=== PATIENT | male | born 1960 | race Caucasian/White ===

== ENCOUNTER → 2017-12-17 08:45 | Outpatient (CLI) | payer BC, SELFPAY ==
--- NOTE | 2017-12-17 08:47 | DI.RAD.S_ITS ---
PROCEDURE: XR LUMBAR SPINE 2-3V INDICATIONS: Low back and R hip pain with radiculopathy TECHNIQUE: 2 views of the lumbar spine were acquired. COMPARISON: None. FINDINGS: Bones: No fracture or focal osseous destruction. Endplate spurring and sclerosis from L3-S1. There is lower lumbar facet arthropathy from L4-S1. Mild narrowing of the L4-L5 disc space. Remaining disc spaces are grossly preserved. Lower thoracic spine endplate spurring and sclerosis. Soft tissues: Overlying bowel gas pattern is normal. No suspicious soft tissue calcifications. IMPRESSION: Mild L4-L5 degenerative disease. Lower lumbar facet arthropathy from L4-S1. Dictated by: Sae Solomon M.D. on 12/17/2017 at 8:14 Approved by: Sae Solomon M.D. on 12/17/2017 at 8:17
== END ==
PROVIDERS: PCP Physician Assistant; Visit Provider Physician Assistant
DX: M47.27 Other spondylosis with radiculopathy, lumbosacral region (principal); M25.551 Pain in right hip
CPT/HCPCS: 72100

== ENCOUNTER → 2018-08-08 09:13 | Outpatient (CLI) | payer BC, SELFPAY ==
[2018-08-08 09:50] LABS: Alanine Aminotransferase 42 IU/L (21-72); Albumin 4.3 g/dL (3.5-5.0); Albumin Globulin Ratio 1.5 (1.0-2.8); Alkaline Phosphatase 71 U/L (38-126); Aspartate Aminotransferase 35 IU/L (17-59); BUN Creatinine Ratio 15.6 (6-22); Bilirubin Total 0.6 mg/dL (0.2-1.3); Blood Urea Nitrogen 14 mg/dL (9-20); Calcium 9.3 mg/dL (8.4-10.2); Carbon Dioxide 30 mmol/L (22-32); Chloride 99 mmol/L (98-107); Cholesterol 213 mg/dL (140-199); Estimated Glomerular Filt Rate > 60.0 mL/min (>60); Globulin 2.8 g/dL (1.7-4.1); Glucose 102 mg/dL (70-100); HDL Cholesterol 42 mg/dL (40-60); HEMOLYSIS < 15 (0-50); LDL Cholesterol Calculated 115 mg/dL (<100); Potassium 4.7 mmol/L (3.4-5.1); Sodium 137 mmol/L (137-145); Total Protein 7.1 g/dL (6.3-8.2); Triglycerides 282 mg/dL (35-150)
[2018-08-08 12:26] LABS: Hep C Virus Ab w/Reflex Quant NEGATIVE s/c (NEGATIVE)
== END ==
PROVIDERS: PCP Physician Assistant; Visit Provider Physician Assistant
DX: E78.1 Pure hyperglyceridemia (principal); Z11.59 Encounter for screening for other viral diseases
CPT/HCPCS: 36415; 80053; 80061; 86803

== ENCOUNTER → 2018-09-06 12:25 | Outpatient (CLI) | payer BC, SELFPAY ==
[2018-09-09 13:47] LABS: Fecal Immunochemical Test NOT DETECTED (NOT DETECTED)
== END ==
PROVIDERS: PCP Physician Assistant; Visit Provider Physician Assistant
DX: Z12.11 Encounter for screening for malignant neoplasm of colon (principal)
CPT/HCPCS: 82274

== ENCOUNTER → 2018-10-01 08:28 | Outpatient (CLI) | payer BC, SELFPAY ==
[2018-10-01 09:10] LABS: Cholesterol 197 mg/dL (140-199); HDL Cholesterol 39 mg/dL (40-60); LDL Cholesterol Calculated 132 mg/dL (<100); Triglycerides 132 mg/dL (35-150)
== END ==
PROVIDERS: PCP Physician Assistant; Visit Provider Physician Assistant
DX: E78.1 Pure hyperglyceridemia (principal)
CPT/HCPCS: 36415; 80061

== ENCOUNTER → 2019-08-23 08:11 | Outpatient (CLI) | payer BC, SELFPAY ==
[2019-08-23 09:32] LABS: Add Manual Diff / Slide Review NO; Basophils Absolute Auto 100 /uL (0-100); Eosinophils Absolute Auto 400 /uL (0-450); Eosinophils Percent Auto 4.9 % (2-4); Hematocrit 46.5 % (41-53); Hemoglobin 15.9 g/dL (13.5-17.5); Lymphocytes Absolute Auto 2900 /uL (1100-4500); Lymphocytes Percent Auto 36.1 % (25-40); Mean Corpuscular HGB Conc 34.2 % (30-36); Mean Corpuscular Hemoglobin 30.1 PG (26-34); Mean Corpuscular Volume 88.2 fL (80-100); Monocytes Absolute Auto 500 /uL (0-900); Monocytes Percent Auto 6.6 % (3-14); Neutrophils Absolute Auto 4100 /uL (1500-7000); Neutrophils Percent Auto 51.4 % (50-75); Platelet Count 290 X10^3/uL (150-400); Red Blood Cell Count 5.27 X10^6/uL (4.5-5.9); Red Cell Distribution Width 13.5 % (11.6-14.8)
[2019-08-23 10:01] LABS: Alanine Aminotransferase 24 IU/L (<50); Albumin 2.9 g/dL (3.5-5.0); Albumin Globulin Ratio 1.2 (1.0-2.8); Alkaline Phosphatase 69 U/L (38-126); Aspartate Aminotransferase 27 IU/L (17-59); Bilirubin Total 0.4 mg/dL (0.2-1.3); Blood Urea Nitrogen 20 mg/dL (9-20); Calcium 9.2 mg/dL (8.4-10.2); Carbon Dioxide 34 mmol/L (22-32); Chloride 103 mmol/L (98-107); Cholesterol 259 mg/dL (140-199); Estimated Glomerular Filt Rate > 60.0 mL/min (>60); Globulin 2.5 g/dL (1.7-4.1); Glucose 92 mg/dL (70-100); HDL Cholesterol 37 mg/dL (40-60); HEMOLYSIS < 15 (0-50); LDL Cholesterol Calculated 172 mg/dL (<100); Potassium 5.3 mmol/L (3.4-5.1); Sodium 139 mmol/L (137-145); Total Protein 5.4 g/dL (6.3-8.2); Triglycerides 249 mg/dL (35-150)
[2019-08-23 10:26] LABS: Thyroid Stimulating Hormone 1.62 uIU/mL (0.47-4.68)
[2019-08-23 10:38] LABS: Appearance Urine UA CLEAR; Bilirubin Urine UA NEGATIVE (NEGATIVE); Color Urine UA YELLOW; Glucose Urine UA NEGATIVE (Negative); Ketones Urine UA NEGATIVE (NEGATIVE); Leukocyte Esterase Urine UA NEGATIVE (NEGATIVE); Nitrite Urine UA NEGATIVE (Negative); Occult Blood Urine UA 1+ (Negative); Protein Urine UA 3+ (Negative); Specific Gravity Urine UA 1.025 (1.000-1.035); Urobilinogen Urine UA 0.2 E.U./dL (0.2)
[2019-08-23 10:42] LABS: Bacteria Urine None Seen; WBC Urine None Seen (0-5/HPF)
[2019-08-23 10:55] LABS: Amorphous Sediment Urine 2+; Culture Indicated Urine Cult Not Indicated; Mucus Urine 1+ (Negative); RBC Urine 1-5/HPF (0-5/HPF)
== END ==
PROVIDERS: PCP Physician Assistant
DX: E78.1 Pure hyperglyceridemia (principal); E78.5 Hyperlipidemia, unspecified
CPT/HCPCS: 36415; 80053; 80061; 81003; 81015; 84443; 85025

== ENCOUNTER → 2019-09-29 10:11 | Outpatient (CLI) | payer BC, SELFPAY ==
[2019-09-29 10:40] LABS: Appearance Urine UA CLEAR; Bilirubin Urine UA NEGATIVE (NEGATIVE); Color Urine UA YELLOW; Glucose Urine UA NEGATIVE (Negative); Ketones Urine UA NEGATIVE (NEGATIVE); Leukocyte Esterase Urine UA NEGATIVE (NEGATIVE); Nitrite Urine UA NEGATIVE (Negative); Occult Blood Urine UA 1+ (Negative); Protein Urine UA 3+ (Negative); Urobilinogen Urine UA 0.2 E.U./dL (0.2); pH Urine UA 5.5 (4.5-8.0)
[2019-09-29 10:49] LABS: Alanine Aminotransferase 27 IU/L (<50); Albumin 3.3 g/dL (3.5-5.0); Albumin Globulin Ratio 1.1 (1.0-2.8); Alkaline Phosphatase 66 U/L (38-126); Aspartate Aminotransferase 35 IU/L (17-59); BUN Creatinine Ratio 11.2 (6-22); Bilirubin Total 0.5 mg/dL (0.2-1.3); Blood Urea Nitrogen 11 mg/dL (9-20); Calcium 9.1 mg/dL (8.4-10.2); Carbon Dioxide 33 mmol/L (22-32); Chloride 103 mmol/L (98-107); Estimated Glomerular Filt Rate > 60.0 mL/min (>60); Globulin 2.9 g/dL (1.7-4.1); Glucose 101 mg/dL (70-100); HEMOLYSIS 42 (0-50); Potassium 4.8 mmol/L (3.4-5.1); Sodium 137 mmol/L (137-145); Total Protein 6.2 g/dL (6.3-8.2)
[2019-09-29 11:00] LABS: Bacteria Urine Few (2-10); Culture Indicated Urine Cult Not Indicated; Hyaline Casts Urine 0-1/LPF; Mucus Urine 1+ (Negative); RBC Urine 1-5/HPF (0-5/HPF); WBC Urine 0-1/HPF (0-5/HPF)
[2019-09-29 11:18] LABS: Prostate Specific Antigen 1.28 ng/mL (0.10-4.00)
== END ==
PROVIDERS: PCP Physician Assistant; Referring Provider Family Medicine; Visit Provider Family Medicine
DX: E78.1 Pure hyperglyceridemia (principal); R31.29 Other microscopic hematuria
CPT/HCPCS: 36415; 80053; 81001; 84153

== ENCOUNTER → 2019-11-11 08:27 | Outpatient (CLI) | payer BC, SELFPAY ==
[2019-11-11 11:03] LABS: Appearance Urine UA CLEAR; Bilirubin Urine UA NEGATIVE (NEGATIVE); Color Urine UA YELLOW; Glucose Urine UA NEGATIVE (Negative); Ketones Urine UA NEGATIVE (NEGATIVE); Leukocyte Esterase Urine UA NEGATIVE (NEGATIVE); Nitrite Urine UA NEGATIVE (Negative); Occult Blood Urine UA 2+ (Negative); Protein Urine UA 3+ (Negative); Specific Gravity Urine UA 1.015 (1.000-1.035); Urobilinogen Urine UA 0.2 E.U./dL (0.2); pH Urine UA 6.5 (4.5-8.0)
[2019-11-11 11:28] LABS: Bacteria Urine Few (2-10); Culture Indicated Urine Cult Not Indicated; RBC Urine 5-10/HPF (0-5/HPF); WBC Urine 1-5/HPF (0-5/HPF)
== END ==
PROVIDERS: PCP Physician Assistant; Referring Provider Family Medicine; Visit Provider Family Medicine
DX: N41.0 Acute prostatitis (principal)
CPT/HCPCS: 81001

== ENCOUNTER → 2019-12-01 10:00 | Outpatient (CLI) | payer BC, SELFPAY ==
--- NOTE | 2019-12-01 10:01 | DI.RAD.S_ITS ---
PROCEDURE: XR LUMBAR SPINE 2-3V INDICATIONS: worsening radiculopathy TECHNIQUE: 3 views of the lumbar spine were acquired. COMPARISON: [facility], CR, XR LUMBAR SPINE 2-3V, 12/17/2017, 8:27. FINDINGS: Bones: 5 [id number] vertebrae are present. There is normal bony alignment. No vertebral body compression fractures. No suspicious bony lesions. Degenerative changes including intervertebral disc space narrowing, endplate sclerosis, osteophytosis, and facet sclerosis are present within the lower lumbar spine. These findings have increased in extent at L4-5 when compared with the prior plain film dated 12/17/17. Soft tissues: Overlying bowel gas pattern is normal. No suspicious soft tissue calcifications. IMPRESSION: Degenerative changes increased in severity when compared with the study from 2018. No acute compression deformities. Dictated by: Ava Martino M.D. on 12/01/2019 at 11:58 Approved by: Ava Martino M.D. on 12/01/2019 at 11:59
== END ==
PROVIDERS: PCP Nurse Practitioner Family; Referring Provider Nurse Practitioner Family; Visit Provider Nurse Practitioner Family
DX: M47.26 Other spondylosis with radiculopathy, lumbar region (principal)
CPT/HCPCS: 72100

== ENCOUNTER → 2020-02-12 09:34 | Outpatient (CLI) | payer BC, SELFPAY ==
--- NOTE | 2020-02-12 | DI.MRI.S_ITS ---
PROCEDURE: MR LUMBAR SPINE WO CON INDICATIONS: LUMBAR PAIN TECHNIQUE: Noncontrast sagittal T1 spin echo and T2 fast echo, sagittal STIR, axial T1 and T2 fast spin echo through the lumbar spine. In cases with scoliosis, additional coronal T2 fast spin echo may be performed. COMPARISON: [facility], CR, XR LUMBAR SPINE 2-3V, 12/01/2019, 10:17. [facility], CR, XR LUMBAR SPINE 2-3V, 12/17/2017, 8:27. FINDINGS: Image quality: Excellent. Alignment and Curvature: There is normal bony alignment. Bone Marrow: Reactive endplate changes noted adjacent to the L4-L5 and L5-S1 discs., benign intraosseous hemangioma is noted in the L1 and L2 vertebral bodies. No acute vertebral body compression fractures. Spinal Cord: Conus medullaris terminates at the L1 level. Visualized cord demonstrates normal signal and size. Paraspinous Soft Tissues: No paravertebral masses. L1-L2: Normal appearance. L2-L3: Normal appearance. L3-L4: Slight loss of disc signal. Mild, diffuse disc bulge. Mild narrowing the central canal. Mild bilateral neural foraminal narrowing. Fissure noted in the left foraminal annulus. No neural compression. L4-L5: Loss of disc signal and height. Mild, diffuse disc bulge. Mild bilateral facet hypertrophy. Mild ligamentum flavum hypertrophy. Severe narrowing of the central canal with slight compression of the nerve roots of the cauda equina. Moderate to severe right and moderate left neural foraminal narrowing. L5-S1: Loss of disc signal. Mild, diffuse disc bulge. Small central disc protrusion. Mild bilateral facet hypertrophy. Mild narrowing of the central canal. Mild bilateral neural foraminal narrowing. No neural compression. Fissure noted in the posterior annulus. IMPRESSION: 1. Multilevel degenerative disease. 2. Multilevel facet arthropathy. 3. Severe L4-L5 central canal narrowing with slight compression of the nerve roots of the cauda equina. 3. Moderate to severe right moderate left L4-L5 neural foraminal narrowing. Mild bilateral L3-L4 and L5-S1 neural foraminal narrowing. 4. L3-L4 and L4-L5 disc annulus fissures. Dictated by: Barbi Bravo MD, PhD on 02/12/2020 at 14:41 Approved by: Barbi Bravo MD, PhD on 02/12/2020 at 14:44
== END ==
PROVIDERS: PCP Nurse Practitioner Family; Referring Provider Orthopaedic Surgery Orthopaedic Surgery of the Spine; Visit Provider Orthopaedic Surgery Orthopaedic Surgery of the Spine
DX: M51.16 Intervertebral disc disorders with radiculopathy, lumbar region (principal); M51.17 Intervertebral disc disorders with radiculopathy, lumbosacral region; M47.26 Other spondylosis with radiculopathy, lumbar region; M47.27 Other spondylosis with radiculopathy, lumbosacral region; M48.061 Spinal stenosis, lumbar region without neurogenic claudication; M48.07 Spinal stenosis, lumbosacral region
CPT/HCPCS: 72148

== ENCOUNTER 2020-04-18 17:53 | Observation (INO) | payer BC, SELFPAY ==
[2020-04-18] VITALS (11 sets, daily range): BP systolic 155–202; BP diastolic 82–96; PULSE 72–89; RESP 14–19; TEMP 36.6–37.2; O2SAT 91–98; BMI 33.5
--- NOTE | 2020-04-18 18:02 | DI.US.S_ITS ---
PROCEDURE: US ABDOMEN LIMITED INDICATIONS: RIGHT UPPER QUADRANT PAIN AND VOMITING TECHNIQUE: Real-time focused scanning was performed of the abdomen, with image documentation. COMPARISON: [facility], CT, CT IVP, 12/18/2019, 9:23. FINDINGS: Mild diffuse increased echogenicity of the liver. This commonly represents hepatic steatosis. However, on the recent prior CT, there was no fatty change in the liver. Gallbladder is unremarkable. Thin gallbladder wall. No gallstones. No fluid around the gallbladder. No sonographic Ochoa sign. Pancreas not well visualized secondary to overlying bowel gas. Limited imaging of the right kidney demonstrates no hydronephrosis. Extrahepatic biliary duct not visualized secondary to overlying bowel gas. IMPRESSION: 1. No evidence of gallstone disease. 2. Question hepatic steatosis. Comment: Patient is noted to be scheduled to undergo a CT of the abdomen and pelvis to be performed following this examination. Dictated by: Lee Levy M.D. on 04/18/2020 at 18:49 Approved by: Lee Levy M.D. on 04/18/2020 at 18:51
--- NOTE | 2020-04-18 18:05 | ED_ITS ---
HPI - Abdominal Pain <BRENDA Ma-BC - Last Filed: 04/18/20 20:39> General Chief Complaint: Abdominal Pain Stated Complaint: Abdominal pain Time Seen by Provider: 04/18/20 18:02 Source: patient Mode of arrival: EMS Limitations: no limitations History of Present Illness HPI narrative: The patient is a 60-year-old male current smoker with history of obstructive sleep apnea who presents with a chief complaint of nausea vomiting and abdominal pain since yesterday. Denies any abdominal surgery. He wonders if it is related to the for his [facility] saw such that he cooked yesterday b efore he got sick. He states his pain is right up under his ribcage is on both sides. He denies any fevers, complains of muscle aches and chills when vomiting. Denies any chest pain or shortness of breath. States he has never had abdominal pain like this before. Denies any problems urinating. Last bowel movement was 2 days ago. Related Data Home Medications Medication Instructions Recorded Confirmed cholecalciferol (vitamin D3) 125 5,000 unit PO DAILY 12/17/17 04/18/20 mcg (5,000 unit) capsule multivitamin,[id number] 1 tab PO DAILY 12/17/17 04/18/20 OMEGA 3 FISH OIL See Rx Instructions .ROUTE .COMPLEX 08/14/18 04/18/20 albuterol sulfate 90 mcg/actuation 2 puff INHALATION Q4-6H PRN 11/19/19 04/18/20 aerosol inhaler inhalation Previous Rx's Medication Instructions Recorded CPAP Supplies #1 ea 11/06/17 varicella-zoster [id number] (PF) 50 50 mcg IM ONCE #1 each 08/14/18 mcg/0.5 mL IM susp, kit atorvastatin 10 mg tablet 10 mg PO BEDTIME #90 tab 09/29/19 naproxen 500 mg tablet 500 mg PO BIDCC #90 tab 10/24/19 modafinil 200 mg tablet 200 mg PO QDAY #90 tab 11/19/19 fluticasone 250 mcg-salmeterol 50 1 inhalation INHALATION BID #60 02/20/20 mcg/dose blistr powdr for each inhalation Allergies Allergy/AdvReac Type Severity Reaction Status Date / Time No Known Drug Allergies Allergy Verified 12/23/19 09:20 Review of Systems <THAO Ma - Last Filed: 04/18/20 20:39> Review of Systems Narrative: GENERAL: See HPI HEENT: Denies sinus pain, ear pain, sore throat, difficulty swallowing, dizziness. RESPIRATORY: Denies dyspnea, cough, wheezing, hemoptysis, sputum. CARDIOVASCULAR: Denies chest pain, palpitations, orthopnea, edema, GASTROINTESTINAL: See HPI : Denies dysuria, frequency, incontinence, hematuria, urinary retention. MUSCULOSKELETAL: denies weakness, joint pain, or bony pain SKIN: Denies rash, skin lesions, or other NEUROLOGIC: Denies weakness, headache, numbness, change in speech, confusion, seizures, incoordination. PSYCHIATRIC: No concerning psychosocial issues. 12 point review of systems is negative except for those stated above Patient History <THAO Ma - Last Filed: 04/18/20 20:39> Medical History Asthma (Chronic Unknown) Basal cell carcinoma (BCC) (Acute) COPD (chronic obstructive pulmonary disease) (Acute) Gout (Chronic Unknown) Hearing loss (Chronic Unknown) Hyperlipidemia (Acute) Microscopic hematuria (Acute 08/2019) Narcolepsy (Chronic Unknown) Periodic limb movement disorder (Chronic Unknown) REM behavioral disorder (Chronic Unknown) Skin lesion (Acute) Sleep apnea (Chronic Unknown) Visit for suture removal (Acute) Surgical History History of basal cell carcinoma excision (Acute) Family History Mother Brain tumor Father Heart disease Dementia Social History household members: spouse Smoking Status: Current every day smoker Tobacco: How many years used: 40 quit status: considering quitting second hand exposure: No alcohol intake: current substance use type: does not use Smoking Status: Current every day smoker Exam <THAO Ma - Last Filed: 04/18/20 20:39> Narrative Exam Narrative: GENERAL: This is a well-nourished, well-developed patient, appears uncomfortable HEAD: Atraumatic. Normocephalic. No temporal or scalp tenderness. EYES: Pupils equal round and reactive. Extraocular motions intact. No scleral icterus. No injection or drainage. ENT: Nose without bleeding, purulent drainage or septal hematoma. Wearing a mask. Airway patent. NECK: Trachea midline. No JVD or lymphadenopathy. Supple, nontender, no meningeal signs. CARDIOVASCULAR: Regular rate and rhythm RESPIRATORY: Clear to auscultation. Breath sounds equal bilaterally. No wheezes, rales, or rhonchi. No cough. No increased respiratory effort no accessory muscle use. GASTROINTESTINAL: Abdomen soft, tenderness with guarding to right upper quadrant, positive Ochoa sign, otherwise diffusely tender to palpation. No palpable masses. Active bowel sounds all 4 quadrants EXTREMITIES: No clubbing, cyanosis, or edema. No joint tenderness, effusion, or edema noted. BACK: Nontender without deformity or crepitance. No flank tenderness. NEURO: AOx3. Clear speech. No gross cranial nerve deficit. SKIN: No rash or erythema on visible skin Initial Vital Signs Initial Vital Signs: Vital Signs Pulse Rate 80 04/18/20 17:55 Respiratory Rate 18 04/18/20 17:55 Blood Pressure 202/96 H 04/18/20 17:55 Pulse Oximetry 95 04/18/20 17:55 <Thanh Howard DO - Last Filed: 04/19/20 00:33> Initial Vital Signs Initial Vital Signs: Vital Signs Pulse Rate 80 04/18/20 17:55 Respiratory Rate 18 04/18/20 17:55 Blood Pressure 202/96 H 04/18/20 17:55 Pulse Oximetry 95 04/18/20 17:55 Scores <THAO Ma - Last Filed: 04/18/20 20:39> GCS Leila coma scale eye opening: Spontaneous Corea coma scale verbal response: Orientated Corea coma scale motor response: Obey commands Leila coma scale total score: 15 Course <THAO Ma - Last Filed: 04/18/20 20:39> Orders Ordered: ED Orders 04/18/20 18:00 Amylase Stat Complete Blood Count AUTO DIFF Stat Comprehensive Metabolic Panel Stat Lactate (Lactic Acid) Stat Lipase Stat Partial Thromboplastin Time Stat Prothrombin Time INR Stat Troponin & CK Cardiac Panel Stat 04/18/20 18:02 US abdomen limited Stat EKG-12 Lead Stat 04/18/20 18:04 XR acute abdomen series Stat 04/18/20 18:17 COVID19 -ED/INPAT/OR/L&D Stat 04/18/20 18:38 CT abdomen pelvis w con Stat 04/18/20 20:04 Ethanol (ETOH) Stat 04/18/20 20:49 Urine Culture Stat Urine Drug Screen, Rapid Stat Acetaminophen (Tylenol) 650 mg PO Q6HR PRN PRN Reason: Fever/Mild Pain (1-3) Acetaminophen (Tylenol) 650 mg ND Q6HR PRN PRN Reason: Fever/Mild Pain (1-3) Albuterol (Ventolin Hfa (Vent/Covid R/O)) 2 puff INH Q4H PRN PRN Reason: Dyspnea Atorvastatin Calcium (Lipitor) 10 mg PO BEDTIME SERG Enoxaparin Sodium (Lovenox) 40 mg SUBCUT DAILY SERG Folic Acid (Folic Acid) 1 mg PO DAILY SERG Hydromorphone HCl (Dilaudid) 1 mg IV Q3H PRN PRN Reason: Pain, Severe (7-10) Last Admin: 04/18/20 23:50 Dose: 1 mg Documented by: Admin: 04/18/20 21:35 Dose: 1 mg Documented by: NICKI Magnesium Sulfate 2 gm/ Folic Acid 1 mg/ Thiamine HCl 100 mg / Multivitamins 10 ml/ Sodium Chloride 1,015.2 mls @ 125 mls/hr IV NOW ONE Stop: 04/19/20 04:56 Last Admin: 04/18/20 21:35 Dose: 125 mls/hr Documented by: NICKI Lorazepam (Ativan) 2 mg IV CIWAPRN PRN; Protocol PRN Reason: Alcohol Withdrawal Metoclopramide HCl (Reglan) 10 mg IV Q6HR PRN PRN Reason: Nausea And Vomiting Multivitamins (Tab-A-Will) 1 tab PO DAILY SERG Naloxone HCl (Narcan) 0.2 mg IV Q2MIN PRN PRN Reason: Opiate Reversal Nicotine (Nicoderm) 14 mg TOP DAILY SERG Ondansetron HCl (Zofran) 4 mg IV Q6HR PRN PRN Reason: Nausea And Vomiting Fluticasone/Salmeterol (Advair 250/50 Diskus) 1 puff INH BID SERG Last Admin: 04/18/20 22:22 Dose: 1 puff Documented by: NICKI Sennosides (Senna) 17.2 mg PO BEDTIME [facility] Last Admin: 04/18/20 21:41 Dose: 17.2 mg Documented by: NICKI Thiamine HCl (Vitamin B-1) 100 mg PO DAILY [facility] Stop: 04/22/20 09:01 Discontinued Medications Enoxaparin Sodium (Lovenox) 40 mg SUBCUT DAILY [facility] Hydromorphone HCl (Dilaudid) 1 mg IV NOW ONE Stop: 04/18/20 18:59 Last Admin: 04/18/20 19:09 Dose: 1 mg Documented by: LACHELLE Sodium Chloride (Normal Saline 0.9%) 1,000 mls @ 1,000 mls/hr IV BOLUS ONE Stop: 04/18/20 19:06 Last Infusion: 04/18/20 20:29 Dose: 0 mls/hr Documented by: Admin: 04/18/20 18:13 Dose: 1,000 mls/hr Documented by: LACHELLE Sodium Chloride (Normal Saline 0.9%) 1,000 mls @ 1,000 mls/hr IV BOLUS ONE Stop: 04/18/20 20:34 Last Admin: 04/18/20 19:48 Dose: 1,000 mls/hr Documented by: LACHELLE Ceftriaxone Sodium/Dextrose (Rocephin) 1 gm in 50 mls @ 100 mls/hr IV NOW ONE Stop: 04/18/20 22:15 Last Admin: 04/18/20 22:58 Dose: 100 mls/hr Documented by: NICKI Ketorolac Tromethamine (Toradol) 30 mg IV Q6HR PRN PRN Reason: Pain, Severe (7-10) Stop: 04/23/20 20:48 Labetalol HCl (Trandate) 5 mg IV NOW ONE Stop: 04/18/20 21:50 Last Admin: 04/18/20 22:42 Dose: Not Given Documented by: NICKI Morphine Sulfate (Morphine) 4 mg IV NOW ONE Stop: 04/18/20 18:03 Last Admin: 04/18/20 18:12 Dose: 4 mg Documented by: LACHELLE Morphine Sulfate (Morphine) 4 mg IV NOW ONE Stop: 04/18/20 18:39 Last Admin: 04/18/20 18:42 Dose: 4 mg Documented by: LACHELLE Pantoprazole Sodium (Protonix) 40 mg IV NOW ONE Stop: 04/18/20 19:02 Last Admin: 04/18/20 19:09 Dose: 40 mg Documented by: LACHELLE Vital Signs Vital signs: Vital Signs - 8 hr 04/18/20 17:55 04/18/20 17:58 04/18/20 18:02 Temperature 98.9 F Pulse Rate 80 75 Respiratory Rate 18 Blood Pressure 202/96 H Pulse Oximetry 95 98 04/18/20 18:21 04/18/20 18:30 Temperature Pulse Rate 78 72 Respiratory Rate Blood Pressure 179/95 H 174/82 H Pulse Oximetry 95 97 <Thanh Howard DO - Last Filed: 04/19/20 00:33> Orders Ordered: ED Orders 04/18/20 18:00 Amylase Stat Complete Blood Count AUTO DIFF Stat Comprehensive Metabolic Panel Stat Lactate (Lactic Acid) Stat Lipase Stat Partial Thromboplastin Time Stat Prothrombin Time INR Stat Troponin & CK Cardiac Panel Stat 04/18/20 18:02 US abdomen limited Stat EKG-12 Lead Stat 04/18/20 18:04 XR acute abdomen series Stat 04/18/20 18:17 COVID19 -ED/INPAT/OR/L&D Stat 04/18/20 18:38 CT abdomen pelvis w con Stat 04/18/20 20:04 Ethanol (ETOH) Stat 04/18/20 20:49 Urine Culture Stat Urine Drug Screen, Rapid Stat Acetaminophen (Tylenol) 650 mg PO Q6HR PRN PRN Reason: Fever/Mild Pain (1-3) Acetaminophen (Tylenol) 650 mg ND Q6HR PRN PRN Reason: Fever/Mild Pain (1-3) Albuterol (Ventolin Hfa (Vent/Covid R/O)) 2 puff INH Q4H PRN PRN Reason: Dyspnea Atorvastatin Calcium (Lipitor) 10 mg PO BEDTIME SERG Enoxaparin Sodium (Lovenox) 40 mg SUBCUT DAILY SERG Folic Acid (Folic Acid) 1 mg PO DAILY SERG Hydromorphone HCl (Dilaudid) 1 mg IV Q3H PRN PRN Reason: Pain, Severe (7-10) Last Admin: 04/18/20 23:50 Dose: 1 mg Documented by: Admin: 04/18/20 21:35 Dose: 1 mg Documented by: NICKI Magnesium Sulfate 2 gm/ Folic Acid 1 mg/ Thiamine HCl 100 mg / Multivitamins 10 ml/ Sodium Chloride 1,015.2 mls @ 125 mls/hr IV NOW ONE Stop: 04/19/20 04:56 Last Admin: 04/18/20 21:35 Dose: 125 mls/hr Documented by: NICKI Lorazepam (Ativan) 2 mg IV CIWAPRN PRN; Protocol PRN Reason: Alcohol Withdrawal Metoclopramide HCl (Reglan) 10 mg IV Q6HR PRN PRN Reason: Nausea And Vomiting Multivitamins (Tab-A-Will) 1 tab PO DAILY [facility] Naloxone HCl (Narcan) 0.2 mg IV Q2MIN PRN PRN Reason: Opiate Reversal Nicotine (Nicoderm) 14 mg TOP DAILY [facility] Ondansetron HCl (Zofran) 4 mg IV Q6HR PRN PRN Reason: Nausea And Vomiting Fluticasone/Salmeterol (Advair 250/50 Diskus) 1 puff INH BID [facility] Last Admin: 04/18/20 22:22 Dose: 1 puff Documented by: NICKI Sennosides (Senna) 17.2 mg PO BEDTIME [facility] Last Admin: 04/18/20 21:41 Dose: 17.2 mg Documented by: NICKI Thiamine HCl (Vitamin B-1) 100 mg PO DAILY SERG Stop: 04/22/20 09:01 Discontinued Medications Enoxaparin Sodium (Lovenox) 40 mg SUBCUT DAILY [facility] Hydromorphone HCl (Dilaudid) 1 mg IV NOW ONE Stop: 04/18/20 18:59 Last Admin: 04/18/20 19:09 Dose: 1 mg Documented by: LACHELLE Sodium Chloride (Normal Saline 0.9%) 1,000 mls @ 1,000 mls/hr IV BOLUS ONE Stop: 04/18/20 19:06 Last Infusion: 04/18/20 20:29 Dose: 0 mls/hr Documented by: Admin: 04/18/20 18:13 Dose: 1,000 mls/hr Documented by: LACHELLE Sodium Chloride (Normal Saline 0.9%) 1,000 mls @ 1,000 mls/hr IV BOLUS ONE Stop: 04/18/20 20:34 Last Admin: 04/18/20 19:48 Dose: 1,000 mls/hr Documented by: LACHELLE Ceftriaxone Sodium/Dextrose (Rocephin) 1 gm in 50 mls @ 100 mls/hr IV NOW ONE Stop: 04/18/20 22:15 Last Admin: 04/18/20 22:58 Dose: 100 mls/hr Documented by: NICKI Ketorolac Tromethamine (Toradol) 30 mg IV Q6HR PRN PRN Reason: Pain, Severe (7-10) Stop: 04/23/20 20:48 Labetalol HCl (Trandate) 5 mg IV NOW ONE Stop: 04/18/20 21:50 Last Admin: 04/18/20 22:42 Dose: Not Given Documented by: NICKI Morphine Sulfate (Morphine) 4 mg IV NOW ONE Stop: 04/18/20 18:03 Last Admin: 04/18/20 18:12 Dose: 4 mg Documented by: LACHELLE Morphine Sulfate (Morphine) 4 mg IV NOW ONE Stop: 04/18/20 18:39 Last Admin: 04/18/20 18:42 Dose: 4 mg Documented by: LACEHLLE Pantoprazole Sodium (Protonix) 40 mg IV NOW ONE Stop: 04/18/20 19:02 Last Admin: 04/18/20 19:09 Dose: 40 mg Documented by: LACHELLE Vital Signs Vital signs: Vital Signs - 8 hr 04/18/20 17:55 04/18/20 17:58 04/18/20 18:02 Temperature 98.9 F Pulse Rate 80 75 Respiratory Rate 18 Blood Pressure 202/96 H Pulse Oximetry 95 98 04/18/20 18:21 04/18/20 18:30 Temperature Pulse Rate 78 72 Respiratory Rate Blood Pressure 179/95 H 174/82 H Pulse Oximetry 95 97 MDM - Abdominal Pain <BRENDA Ma- - Last Filed: 04/18/20 20:39> Differential Diagnosis Differential diagnosis: Likely abdominal pain, constipation, diverticulitis, gastroenteritis, pancreatitis and small bowel obstruction Lab Data Result diagrams: 04/18/20 18:00 04/18/20 18:00 Labs: Lab Results 04/18/20 04/18/20 04/18/20 Range/Units 18:00 18:00 18:00 WBC 16.7 H (4.5-11.0) X10^3/uL RBC 5.21 (4.5-5.9) X10^6/uL Hgb 15.8 (13.5-17.5) g/dL Hct 46.0 (41-53) % MCV 88.2 (80-100) fL MCH 30.3 (26-34) PG MCHC 34.3 (30-36) % RDW 13.6 (11.6-14.8) % Plt Count 273 (150-400) X10^3/uL Neut % (Auto) 83.3 H (50-75) % Lymph % (Auto) 11.4 L (25-40) % [place] % (Auto) 4.9 (3-14) % Eos % (Auto) 0.0 L (2-4) % Baso % (Auto) 0.4 (0-2) % Neut # (Auto) 44513 H (8774-4238) /uL Lymph # (Auto) 1900 (1479-4106) /uL [place] # (Auto) 800 (0-900) /uL Eos # (Auto) 0 (0-450) /uL Baso # (Auto) 100 (0-100) /uL PT (10.1-12.7) SECONDS INR (0.9-1.3) APTT (26.4-36.2) SECONDS Sodium 137 (137-145) mmol/L Potassium 3.7 (3.4-5.1) mmol/L Chloride 104 (98-107) mmol/L Carbon Dioxide 28 (22-32) mmol/L BUN 12 (9-20) mg/dL Creatinine 0.77 (0.66-1.25) mg/dL Estimated GFR > 60.0 (>60) mL/min BUN/Creatinine Ratio 15.6 (6-22) Glucose 105 (80-110) mg/dL Lactate 0.9 (0.7-2.1) mmol/L Calcium 9.0 (8.4-10.2) mg/dL Total Bilirubin 0.8 (0.2-1.3) mg/dL Conjugated Bilirubin (0.0-0.3) md/dL Unconjugated Bilirubin (0.0-1.1) mg/dL AST 31 (17-59) IU/L ALT 29 (<50) IU/L Alkaline Phosphatase 67 (38-126) U/L Total Creatine Kinase (55-170) U/L CK-MB (CK-2) (<2.37) ng/mL CK-MB (CK-2) Rel Index (1.5-5.0) % Troponin I (0.01-0.034) ng/mL Total Protein 6.2 L (6.3-8.2) g/dL Albumin 3.7 (3.5-5.0) g/dL Globulin 2.5 (1.7-4.1) g/dL Albumin/Globulin Ratio 1.5 (1.0-2.8) Amylase 48 (30-110) U/L Lipase 80 (23-300) U/L Ethyl Alcohol ( - 10) mg/dL COVID-19 PCR (Negative) 04/18/20 04/18/20 04/18/20 Range/Units 18:00 18:00 18:17 WBC (4.5-11.0) X10^3/uL RBC (4.5-5.9) X10^6/uL Hgb (13.5-17.5) g/dL Hct (41-53) % MCV (80-100) fL MCH (26-34) PG MCHC (30-36) % RDW (11.6-14.8) % Plt Count (150-400) X10^3/uL Neut % (Auto) (50-75) % Lymph % (Auto) (25-40) % [place] % (Auto) (3-14) % Eos % (Auto) (2-4) % Baso % (Auto) (0-2) % Neut # (Auto) (3744-3895) /uL Lymph # (Auto) (3444-7138) /uL [place]ford # (Auto) (0-900) /uL Eos # (Auto) (0-450) /uL Baso # (Auto) (0-100) /uL PT 11.8 (10.1-12.7) SECONDS INR 1.0 (0.9-1.3) APTT 31 (26.4-36.2) SECONDS Sodium (137-145) mmol/L Potassium (3.4-5.1) mmol/L Chloride (98-107) mmol/L Carbon Dioxide (22-32) mmol/L BUN (9-20) mg/dL Creatinine (0.66-1.25) mg/dL Estimated GFR (>60) mL/min BUN/Creatinine Ratio (6-22) Glucose (80-110) mg/dL Lactate (0.7-2.1) mmol/L Calcium (8.4-10.2) mg/dL Total Bilirubin (0.2-1.3) mg/dL Conjugated Bilirubin (0.0-0.3) md/dL Unconjugated Bilirubin (0.0-1.1) mg/dL AST (17-59) IU/L ALT (<50) IU/L Alkaline Phosphatase (38-126) U/L Total Creatine Kinase 311 H (55-170) U/L CK-MB (CK-2) 4.27 H (<2.37) ng/mL CK-MB (CK-2) Rel Index 1.4 L (1.5-5.0) % Troponin I < 0.012 (0.01-0.034) ng/mL Total Protein (6.3-8.2) g/dL Albumin (3.5-5.0) g/dL Globulin (1.7-4.1) g/dL Albumin/Globulin Ratio (1.0-2.8) Amylase (30-110) U/L Lipase (23-300) U/L Ethyl Alcohol ( - 10) mg/dL COVID-19 PCR Negative (Negative) 04/18/20 04/18/20 Range/Units 20:04 20:04 WBC (4.5-11.0) X10^3/uL RBC (4.5-5.9) X10^6/uL Hgb (13.5-17.5) g/dL Hct (41-53) % MCV (80-100) fL MCH (26-34) PG MCHC (30-36) % RDW (11.6-14.8) % Plt Count (150-400) X10^3/uL Neut % (Auto) (50-75) % Lymph % (Auto) (25-40) % [place] % (Auto) (3-14) % Eos % (Auto) (2-4) % Baso % (Auto) (0-2) % Neut # (Auto) (1761-5050) /uL Lymph # (Auto) (2150-1675) /uL [place] # (Auto) (0-900) /uL Eos # (Auto) (0-450) /uL Baso # (Auto) (0-100) /uL PT (10.1-12.7) SECONDS INR (0.9-1.3) APTT (26.4-36.2) SECONDS Sodium (137-145) mmol/L Potassium (3.4-5.1) mmol/L Chloride (98-107) mmol/L Carbon Dioxide (22-32) mmol/L BUN (9-20) mg/dL Creatinine (0.66-1.25) mg/dL Estimated GFR (>60) mL/min BUN/Creatinine Ratio (6-22) Glucose (80-110) mg/dL Lactate (0.7-2.1) mmol/L Calcium (8.4-10.2) mg/dL Total Bilirubin 0.8 (0.2-1.3) mg/dL Conjugated Bilirubin 0.0 (0.0-0.3) md/dL Unconjugated Bilirubin 0.7 (0.0-1.1) mg/dL AST 81 H (17-59) IU/L ALT 29 (<50) IU/L Alkaline Phosphatase 66 (38-126) U/L Total Creatine Kinase (55-170) U/L CK-MB (CK-2) (<2.37) ng/mL CK-MB (CK-2) Rel Index (1.5-5.0) % Troponin I (0.01-0.034) ng/mL Total Protein 6.3 (6.3-8.2) g/dL Albumin 3.7 (3.5-5.0) g/dL Globulin 2.6 (1.7-4.1) g/dL Albumin/Globulin Ratio 1.4 (1.0-2.8) Amylase (30-110) U/L Lipase (23-300) U/L Ethyl Alcohol < 10 ( - 10) mg/dL COVID-19 PCR (Negative) Imaging Data CT scan - abdomen/pelvis: Radiologist's Impression: [address] [place] [id number] Scan Report Signed Patient: Antwan Irizarry BMR#: [id number] : 1960Acct:[id number] Age/Sex: 60 / MDate of Service: 04/18/20 Loc: ED Accession Number: [id number] Procedure: CT abdomen pelvis w con Ordering Provider: Carina Godfrey PROCEDURE: CT ABDOMEN PELVIS W CON INDICATIONS: abd pain, elevated wbc TECHNIQUE: After the administration of intravenous contrast, 5 mm thick sections acquired from the diaphragm to the symphysis. 5 mm coronal and sagittal reformats were acquired. For radiation dose reduction, the following was used: automated exposure control, adjustment of mA and/or kV according to patient size. COMPARISON: None. FINDINGS: Image quality: Excellent. ABDOMEN: Lung bases: Lung bases are clear. Heart size is normal. Solid organs: Liver is normal in size and enhancement. Gallbladder is unremarkable . Biliary system is non dilated. Mild inflammatory change in the fat surrounding the uncinate process, and, to a lesser extent, pancreatic head, suggestive of acute appendicitis. Spleen is normal in size and enhancement. No adrenal nodules. Kidneys demonstrate normal size and enhancement, without hydronephrosis. Peritoneum and bowel: Bowel loops demonstrate normal wall thickness and caliber. No free fluid or air. Nodes and vessels: No retroperitoneal or mesenteric adenopathy by size criteria. Aorta and inferior vena cava are normal in size. Miscellaneous: No ventral hernias. PELVIS: Genitourinary: Bladder wall thickness is normal. Miscellaneous: No inguinal hernias or adenopathy. Bones: No suspicious bony lesions. No vertebral body compression fractures. Lumbar degenerative change. Canal stenosis at L4-L5. IMPRESSION: 1. Findings suggesting subtle changes of acute pancreatitis. 2. Incidental note made of canal stenosis at L4-L5. Dictated by: Lee Levy M.D. on 04/18/2020 at 19:06 Approved by: Lee Levy M.D. on 04/18/2020 at 19:08 Abdominal x-ray: Radiologist's Impression: [address] [place] [id number] XRay Report Signed Patient: Antwan Irizarry BMR#: [id number] : 1960Acct:[id number] Age/Sex: 60 / MDate of Service: 04/18/20 Loc: ED Accession Number: [id number] Procedure: XR acute abdomen series Ordering Provider: Bekah,Carina FINGERPRINT TECHNICIAN-BC PROCEDURE: XR ACUTE ABDOMEN SERIES INDICATIONS: abd pain, vomiting TECHNIQUE: One view chest and two views of the abdomen were acquired. COMPARISON: None. FINDINGS: Surgical changes and devices: None. Chest: Lungs are clear. Heart size is normal. No pleural effusions. No pneumoperitoneum. Abdomen: Bowel gas pattern is normal. No suspicious calcifications. Visualized solid organ contours appear normal. Bones: No suspicious bony lesions. IMPRESSION: No evidence of acute abdominal process. No evidence of acute pulmonary process. Dictated by: Lee Levy M.D. on 04/18/2020 at 18:23 Approved by: Lee Levy M.D. on 04/18/2020 at 18:24 US - abdomen: Radiologist's Impression: [address] [place] [id number] Ultrasound Report Signed Patient: Antwan Irizarry BMR#: [id number] : 1960Acct:[id number] Age/Sex: 60 / MDate of Service: 04/18/20 Loc: ED Accession Number: [id number] Procedure: US abdomen limited Ordering Provider: Carina Godfrey FINGERPRINT TECHNICIAN-BC PROCEDURE: US ABDOMEN LIMITED INDICATIONS: RIGHT UPPER QUADRANT PAIN AND VOMITING TECHNIQUE: Real-time focused scanning was performed of the abdomen, with image documentation. COMPARISON: [facility], CT, CT IVP, 12/18/2019, 9:23. FINDINGS: Mild diffuse increased echogenicity of the liver. This commonly represents hepatic steatosis. However, on the recent prior CT, there was no fatty change in the liver. Gallbladder is unremarkable. Thin gallbladder wall. No gallstones. No fluid around the gallbladder. No sonographic Ochoa sign. Pancreas not well visualized secondary to overlying bowel gas. Limited imaging of the right kidney demonstrates no hydronephrosis. Extrahepatic biliary duct not visualized secondary to overlying bowel gas. IMPRESSION: 1. No evidence of gallstone disease. 2. Question hepatic steatosis. Comment: Patient is noted to be scheduled to undergo a CT of the abdomen and pelvis to be performed following this examination. Dictated by: Lee Levy M.D. on 04/18/2020 at 18:49 Approved by: Lee Levy M.D. on 04/18/2020 at 18:51 ECG Data Attestation: I personally reviewed and interpreted this ECG as follows: Interpretation: Sinus rhythm. Ventricular rate 70. P.r. interval 172. QRS 90. MDM Narrative Medical decision making narrative: The patient is a 60-year-old male who presents with a chief complaint of abdominal pain, nausea and vomiting since yesterday. He admits to drinking a six-pack of hard [place] per day as well as some shots of Tequila per day. He has slight leukocytosis to white count of 16, otherwise lab work is reassuring. However given his right upper quadrant pain to palpation, ultrasound was taken to help rule out cholecystitis or acute gallbladder etiology. This came back negative. However given his pain and white count, CT was obtained which showed pancreatitis. He was given 2 L of IV fluid, required multiple doses of pain medication in the emergency department, thus I contacted Juanito RODRIGUEZ regarding admission. His coronavirus test resulted negative. He required multiple doses of IV pain medication. Subsequently he was admitted to observation. He states understanding and appreciation. <Thanh Howard, DO - Last Filed: 04/19/20 00:33> Lab Data Labs: Lab Results 04/18/20 04/18/20 04/18/20 Range/Units 18:00 18:00 18:00 WBC 16.7 H (4.5-11.0) X10^3/uL RBC 5.21 (4.5-5.9) X10^6/uL Hgb 15.8 (13.5-17.5) g/dL Hct 46.0 (41-53) % MCV 88.2 (80-100) fL MCH 30.3 (26-34) PG MCHC 34.3 (30-36) % RDW 13.6 (11.6-14.8) % Plt Count 273 (150-400) X10^3/uL Neut % (Auto) 83.3 H (50-75) % Lymph % (Auto) 11.4 L (25-40) % [place] % (Auto) 4.9 (3-14) % Eos % (Auto) 0.0 L (2-4) % Baso % (Auto) 0.4 (0-2) % Neut # (Auto) 86667 H (7860-3589) /uL Lymph # (Auto) 1900 (5111-3896) /uL [place] # (Auto) 800 (0-900) /uL Eos # (Auto) 0 (0-450) /uL Baso # (Auto) 100 (0-100) /uL PT (10.1-12.7) SECONDS INR (0.9-1.3) APTT (26.4-36.2) SECONDS Sodium 137 (137-145) mmol/L Potassium 3.7 (3.4-5.1) mmol/L Chloride 104 (98-107) mmol/L Carbon Dioxide 28 (22-32) mmol/L BUN 12 (9-20) mg/dL Creatinine 0.77 (0.66-1.25) mg/dL Estimated GFR > 60.0 (>60) mL/min BUN/Creatinine Ratio 15.6 (6-22) Glucose 105 (80-110) mg/dL Lactate 0.9 (0.7-2.1) mmol/L Calcium 9.0 (8.4-10.2) mg/dL Total Bilirubin 0.8 (0.2-1.3) mg/dL Conjugated Bilirubin (0.0-0.3) md/dL Unconjugated Bilirubin (0.0-1.1) mg/dL AST 31 (17-59) IU/L ALT 29 (<50) IU/L Alkaline Phosphatase 67 (38-126) U/L Total Creatine Kinase (55-170) U/L CK-MB (CK-2) (<2.37) ng/mL CK-MB (CK-2) Rel Index (1.5-5.0) % Troponin I (0.01-0.034) ng/mL Total Protein 6.2 L (6.3-8.2) g/dL Albumin 3.7 (3.5-5.0) g/dL Globulin 2.5 (1.7-4.1) g/dL Albumin/Globulin Ratio 1.5 (1.0-2.8) Amylase 48 (30-110) U/L Lipase 80 (23-300) U/L Ethyl Alcohol ( - 10) mg/dL COVID-19 PCR (Negative) 04/18/20 04/18/20 04/18/20 Range/Units 18:00 18:00 18:17 WBC (4.5-11.0) X10^3/uL RBC (4.5-5.9) X10^6/uL Hgb (13.5-17.5) g/dL Hct (41-53) % MCV (80-100) fL MCH (26-34) PG MCHC (30-36) % RDW (11.6-14.8) % Plt Count (150-400) X10^3/uL Neut % (Auto) (50-75) % Lymph % (Auto) (25-40) % [place] % (Auto) (3-14) % Eos % (Auto) (2-4) % Baso % (Auto) (0-2) % Neut # (Auto) (5695-3484) /uL Lymph # (Auto) (8723-7873) /uL Rad[place] # (Auto) (0-900) /uL Eos # (Auto) (0-450) /uL Baso # (Auto) (0-100) /uL PT 11.8 (10.1-12.7) SECONDS INR 1.0 (0.9-1.3) APTT 31 (26.4-36.2) SECONDS Sodium (137-145) mmol/L Potassium (3.4-5.1) mmol/L Chloride (98-107) mmol/L Carbon Dioxide (22-32) mmol/L BUN (9-20) mg/dL Creatinine (0.66-1.25) mg/dL Estimated GFR (>60) mL/min BUN/Creatinine Ratio (6-22) Glucose (80-110) mg/dL Lactate (0.7-2.1) mmol/L Calcium (8.4-10.2) mg/dL Total Bilirubin (0.2-1.3) mg/dL Conjugated Bilirubin (0.0-0.3) md/dL Unconjugated Bilirubin (0.0-1.1) mg/dL AST (17-59) IU/L ALT (<50) IU/L Alkaline Phosphatase (38-126) U/L Total Creatine Kinase 311 H (55-170) U/L CK-MB (CK-2) 4.27 H (<2.37) ng/mL CK-MB (CK-2) Rel Index 1.4 L (1.5-5.0) % Troponin I < 0.012 (0.01-0.034) ng/mL Total Protein (6.3-8.2) g/dL Albumin (3.5-5.0) g/dL Globulin (1.7-4.1) g/dL Albumin/Globulin Ratio (1.0-2.8) Amylase (30-110) U/L Lipase (23-300) U/L Ethyl Alcohol ( - 10) mg/dL COVID-19 PCR Negative (Negative) 04/18/20 04/18/20 Range/Units 20:04 20:04 WBC (4.5-11.0) X10^3/uL RBC (4.5-5.9) X10^6/uL Hgb (13.5-17.5) g/dL Hct (41-53) % MCV (80-100) fL MCH (26-34) PG MCHC (30-36) % RDW (11.6-14.8) % Plt Count (150-400) X10^3/uL Neut % (Auto) (50-75) % Lymph % (Auto) (25-40) % [place] % (Auto) (3-14) % Eos % (Auto) (2-4) % Baso % (Auto) (0-2) % Neut # (Auto) (8729-2578) /uL Lymph # (Auto) (8778-2628) /uL Radford # (Auto) (0-900) /uL Eos # (Auto) (0-450) /uL Baso # (Auto) (0-100) /uL PT (10.1-12.7) SECONDS INR (0.9-1.3) APTT (26.4-36.2) SECONDS Sodium (137-145) mmol/L Potassium (3.4-5.1) mmol/L Chloride (98-107) mmol/L Carbon Dioxide (22-32) mmol/L BUN (9-20) mg/dL Creatinine (0.66-1.25) mg/dL Estimated GFR (>60) mL/min BUN/Creatinine Ratio (6-22) Glucose (80-110) mg/dL Lactate (0.7-2.1) mmol/L Calcium (8.4-10.2) mg/dL Total Bilirubin 0.8 (0.2-1.3) mg/dL Conjugated Bilirubin 0.0 (0.0-0.3) md/dL Unconjugated Bilirubin 0.7 (0.0-1.1) mg/dL AST 81 H (17-59) IU/L ALT 29 (<50) IU/L Alkaline Phosphatase 66 (38-126) U/L Total Creatine Kinase (55-170) U/L CK-MB (CK-2) (<2.37) ng/mL CK-MB (CK-2) Rel Index (1.5-5.0) % Troponin I (0.01-0.034) ng/mL Total Protein 6.3 (6.3-8.2) g/dL Albumin 3.7 (3.5-5.0) g/dL Globulin 2.6 (1.7-4.1) g/dL Albumin/Globulin Ratio 1.4 (1.0-2.8) Amylase (30-110) U/L Lipase (23-300) U/L Ethyl Alcohol < 10 ( - 10) mg/dL COVID-19 PCR (Negative) Discharge Plan Departure Patient Disposition: Admitted as Observation Clinical Impression: Pancreatitis, acute Discharge Date/Time: 04/18/20 20:28 Admit Date/Time: 04/18/20 20:22 Admit Provider: Maya Soloomn <Thanh Howrad DO - Last Filed: 04/19/20 00:33> Cosign ED Attending Cosignature Attestation: I was immediately available in the department for consultation. This documentation has been reviewed and I agree with assessment and plan. Supervised by Thanh Howard DO
[2020-04-18 18:11] LABS: Add Manual Diff / Slide Review NO; Basophils Absolute Auto 100 /uL (0-100); Basophils Percent Auto 0.4 % (0-2); Eosinophils Absolute Auto 0 /uL (0-450); Hemoglobin 15.8 g/dL (13.5-17.5); Lymphocytes Absolute Auto 1900 /uL (1100-4500); Lymphocytes Percent Auto 11.4 % (25-40); Mean Corpuscular HGB Conc 34.3 % (30-36); Mean Corpuscular Hemoglobin 30.3 PG (26-34); Mean Corpuscular Volume 88.2 fL (80-100); Monocytes Absolute Auto 800 /uL (0-900); Monocytes Percent Auto 4.9 % (3-14); Neutrophils Absolute Auto 13900 /uL (1500-7000); Neutrophils Percent Auto 83.3 % (50-75); Platelet Count 273 X10^3/uL (150-400); Red Blood Cell Count 5.21 X10^6/uL (4.5-5.9); Red Cell Distribution Width 13.6 % (11.6-14.8); White Blood Cell Count 16.7 X10^3/uL (4.5-11.0)
[2020-04-18] MEDS: MORPHINE 4 MG/ML INJ IV ×2 (18:12→18:42)
[2020-04-18] MEDS: SODIUM CHLORIDE 0.9% 1,000 ML 1000 ML IV ×2 (18:13→19:48)
[2020-04-18 18:15] LABS: Prothrombin Time 11.8 SECONDS (10.1-12.7)
[2020-04-18 18:18] LABS: PTT Partial Thromboplastin Tim 31 SECONDS (26.4-36.2)
[2020-04-18 18:20] LABS: Alanine Aminotransferase 29 IU/L (<50); Albumin 3.7 g/dL (3.5-5.0); Albumin Globulin Ratio 1.5 (1.0-2.8); Alkaline Phosphatase 67 U/L (38-126); Amylase 48 U/L (30-110); Aspartate Aminotransferase 31 IU/L (17-59); BUN Creatinine Ratio 15.6 (6-22); Bilirubin Total 0.8 mg/dL (0.2-1.3); Blood Urea Nitrogen 12 mg/dL (9-20); Carbon Dioxide 28 mmol/L (22-32); Chloride 104 mmol/L (98-107); Creatine Kinase 311 U/L (55-170); Estimated Glomerular Filt Rate > 60.0 mL/min (>60); Globulin 2.5 g/dL (1.7-4.1); Glucose 105 mg/dL (80-110); HEMOLYSIS < 15 (0-50); Lipase 80 U/L (23-300); Potassium 3.7 mmol/L (3.4-5.1); Sodium 137 mmol/L (137-145); Total Protein 6.2 g/dL (6.3-8.2)
[2020-04-18 18:21] LABS: Lactate (Lactic Acid) 0.9 mmol/L (0.7-2.1)
[2020-04-18 18:31] LABS: Troponin I < 0.012 ng/mL (0.01-0.034)
[2020-04-18 18:35] LABS: CKMB % Relative Index 1.4 % (1.5-5.0); Creatine Kinase MB 4.27 ng/mL (<2.37)
[2020-04-18 18:38] LABS: COVID19 -Nasal RAPID Negative (Negative)
--- NOTE | 2020-04-18 18:38 | DI.CT.S_ITS ---
PROCEDURE: CT ABDOMEN PELVIS W CON INDICATIONS: abd pain, elevated wbc TECHNIQUE: After the administration of intravenous contrast, 5 mm thick sections acquired from the diaphragm to the symphysis. 5 mm coronal and sagittal reformats were acquired. For radiation dose reduction, the following was used: automated exposure control, adjustment of mA and/or kV according to patient size. COMPARISON: None. FINDINGS: Image quality: Excellent. ABDOMEN: Lung bases: Lung bases are clear. Heart size is normal. Solid organs: Liver is normal in size and enhancement. Gallbladder is unremarkable . Biliary system is non dilated. Mild inflammatory change in the fat surrounding the uncinate process, and, to a lesser extent, pancreatic head, suggestive of acute appendicitis. Spleen is normal in size and enhancement. No adrenal nodules. Kidneys demonstrate normal size and enhancement, without hydronephrosis. Peritoneum and bowel: Bowel loops demonstrate normal wall thickness and caliber. No free fluid or air. Nodes and vessels: No retroperitoneal or mesenteric adenopathy by size criteria. Aorta and inferior vena cava are normal in size. Miscellaneous: No ventral hernias. PELVIS: Genitourinary: Bladder wall thickness is normal. Miscellaneous: No inguinal hernias or adenopathy. Bones: No suspicious bony lesions. No vertebral body compression fractures. Lumbar degenerative change. Canal stenosis at L4-L5. IMPRESSION: 1. Findings suggesting subtle changes of acute pancreatitis. 2. Incidental note made of canal stenosis at L4-L5. Dictated by: Lee Levy M.D. on 04/18/2020 at 19:06 Approved by: Lee Levy M.D. on 04/18/2020 at 19:08
[2020-04-18] MEDS: HYDROMORPHONE 1 MG INJ IV ×3 (19:09→23:50)
[2020-04-18] MEDS: PANTOPRAZOLE 40 MG VIAL IV (19:09)
[2020-04-18 20:32] LABS: Ethanol (ETOH) < 10 mg/dL
[2020-04-18 20:48] LABS: Alanine Aminotransferase 29 IU/L (<50); Albumin 3.7 g/dL (3.5-5.0); Albumin Globulin Ratio 1.4 (1.0-2.8); Alkaline Phosphatase 66 U/L (38-126); Aspartate Aminotransferase 81 IU/L (17-59); Bilirubin Total 0.8 mg/dL (0.2-1.3); Bilirubin Unconjugated 0.7 mg/dL (0.0-1.1); Globulin 2.6 g/dL (1.7-4.1); HEMOLYSIS 19 (0-50); Total Protein 6.3 g/dL (6.3-8.2)
[2020-04-18 20:57] LABS: UR Morphine/Opiate cutoff 300 Positive (Negative); Ur Creatinine Normal (Normal); Ur Specific Gravity Normal (Normal); Urine Cocaine Negative (Negative); Urine Tetrahydrocannabinol Positive (Negative); Urine pH Normal (Normal)
[2020-04-18 20:58] LABS: Urine Amphetamines Negative (Negative); Urine Barbiturates Negative (Negative); Urine Benzodiazepines Negative (Negative); Urine MDMA Negative (Negative); Urine Methadone Negative (Negative); Urine Methamphetamines Negative (Negative); Urine Oxycodone Negative (Negative); Urine Phencyclidine Negative (Negative); Urine Tricyclic Antidepressant Negative (Negative)
[2020-04-18 21:03] LABS: Cholesterol 195 mg/dL (140-199); HDL Cholesterol 47 mg/dL (40-60); LDL Cholesterol Calculated 105 mg/dL (<100); Triglycerides 217 mg/dL (35-150)
[2020-04-18 21:04] LABS: Magnesium 1.6 mg/dL (1.6-2.3)
--- NOTE | 2020-04-18 21:07 | P.HP_ITS ---
History of Present Illness History of Present Illness Date Patient Seen: 04/18/20 Time Patient Seen: 22:30 Chief complaint: Abdominal pain Narrative: Antwan Irizarry is a 60 y.o. male with asthma/COPD, hyperlipidemia, obstructive sleep apnea, tobacco user and increased alcohol use presented with an approximate 24-hour history of fatigue and awoke this am with nausea and vomiting that then transitioned to severe epigastric pain. He has not been able to hold any food or liquids down. 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 in the room states he is also very hard of hearing, and uses a bipap machine, patient states has a very small mask. States he is thirsty, however EMS needed to give him IV zofran on rout to the hospital. states he felt clammy to her, he states he became sweaty from throwing up. Did become short of breath when throwing up, denies left sided chest pain, points to the right side of his lower chest/upper abdomen. Denies dysurea, diarrhea, has not had a bm in 2 days. He has chronic L4-L5 back pain, has been anxious and bored at home since this past winter. In the ED, they did a CT scan of the abdomen and pelvis which noted possible early pancreatitis, he was administered IV morphine and dilaudid for pain and additional doses of zofran for nausea and vomiting. S temp was 98.9?, blood pressure 172/84, heart rate 89, respiratory rate 15, oxygen saturation of 92%, he was 109 kg with a BMI of 33.5. His WBC is elevated 16.7 with a significant left shift of 13,900 neutrophils, electrolytes essentially normal, lactate normal, AST is elevated at 81, creatinine kinase is elevated at 311, triglycerides are elevated at 217 with an LDL of 105, urine is positive for opi oids likely reflecting medications given in the ED and THC, alcohol level within normal limits. COVID-19 screen is negative. Patient History Medical History Asthma (Chronic Unknown) Basal cell carcinoma (BCC) (Acute) COPD (chronic obstructive pulmonary disease) (Acute) Gout (Chronic Unknown) Hearing loss (Chronic Unknown) Hyperlipidemia (Acute) Microscopic hematuria (Acute 08/2019) Narcolepsy (Chronic Unknown) Periodic limb movement disorder (Chronic Unknown) REM behavioral disorder (Chronic Unknown) Skin lesion (Acute) Sleep apnea (Chronic Unknown) Visit for suture removal (Acute) Surgical History History of basal cell carcinoma excision (Acute) Family & Social History Family History Mother Brain tumor Father Heart disease Dementia Social History: household members spouse Prior Living Arrangements House Safety & Behavioral: Feels Safe in Current Yes Environment Been Physically Hurt or No Threatened By a Person Suicidal Ideation Description None Suicide Plan Description No Plan Tobacco & Substance use: Smoking Status Current every day smoker 1-2 PPD 40+ year PH alcohol intake current, increased to 6-pack of 5% drinks plus 2 drinks hard liquour/day Substance Use Type marijuana Meds Home Medications and Allergies Home Medications Medication Instructions Recorded Confirmed Type CPAP Supplies #1 ea 11/06/17 12/23/19 Rx cholecalciferol (vitamin D3) 125 5,000 unit PO DAILY 12/17/17 04/18/20 History mcg (5,000 unit) capsule multivitamin,[id number] 1 tab PO DAILY 12/17/17 04/18/20 History OMEGA 3 FISH OIL See Rx Instructions .ROUTE .COMPLEX 08/14/18 04/18/20 History varicella-zoster [id number] (PF) 50 50 mcg IM ONCE #1 each 08/14/18 12/23/19 Rx mcg/0.5 mL IM susp, kit atorvastatin 10 mg tablet 10 mg PO BEDTIME #90 tab 09/29/19 04/18/20 Rx naproxen 500 mg tablet 500 mg PO BIDCC #90 tab 10/24/19 04/18/20 Rx albuterol sulfate 90 mcg/actuation 2 puff INHALATION Q4-6H PRN 11/19/19 04/18/20 History aerosol inhaler inhalation modafinil 200 mg tablet 200 mg PO QDAY #90 tab 11/19/19 04/18/20 Rx fluticasone 250 mcg-salmeterol 50 1 inhalation INHALATION BID #60 02/20/20 Rx mcg/dose blistr powdr for each inhalation Allergies Allergy/AdvReac Type Severity Reaction Status Date / Time No Known Drug Allergies Allergy Verified 12/23/19 09:20 Review of Systems Review of Systems ROS: Yes All systems reviewed with the patient and are negative except as otherwise documented Exam Vital Signs (past 8 hours): - 04/18/20 17:55 04/18/20 17:58 04/18/20 18:02 Temperature 98.9 F Pulse Rate 80 75 Respiratory Rate 18 Blood Pressure 202/96 H Pulse Oximetry 95 98 04/18/20 18:21 04/18/20 18:30 04/18/20 20:34 Temperature Pulse Rate 78 72 89 Respiratory Rate 14 Blood Pressure 179/95 H 174/82 H 172/84 H Pulse Oximetry 95 97 96 Oxygen Delivery Method Room Air Narrative Exam Narrative: Gen: Alert, oriented, obese 60 y.o. male, somewhat anxious HEENT: normocephalic, atraumatic, conjunctiva clear, sclera non-icteric, oral mucosa pink and moist Neck: supple, full ROM, no JVD, trachea is midline Resp: Lungs CTA, non-labored breathing CV: RRR, no murmur or rubs Abd: obese and diffusely tender in the right upper quadrant, normoactive BTs Skin: no lesions or rashes, dry and intact Neuro: Alert and oriented X 4 w/no focal deficits. Speech clear and coherent. Extremities: No edema, moves all 4 extremities, is ambulatory, negative Kirsten?s sign Psyche: normal mood and affect. Objective Labs Result Diagrams: 04/18/20 18:00 04/18/20 18:00 Labs: Laboratory Results - last 24 hr 04/18/20 04/18/20 04/18/20 18:00 18:00 18:00 WBC 16.7 H RBC 5.21 Hgb 15.8 Hct 46.0 MCV 88.2 MCH 30.3 MCHC 34.3 RDW 13.6 Plt Count 273 Neut % (Auto) 83.3 H Lymph % (Auto) 11.4 L Ramsey % (Auto) 4.9 Eos % (Auto) 0.0 L Baso % (Auto) 0.4 Neut # (Auto) 99656 H Lymph # (Auto) 1900 Ramsey # (Auto) 800 Eos # (Auto) 0 Baso # (Auto) 100 PT INR APTT Sodium 137 Potassium 3.7 Chloride 104 Carbon Dioxide 28 BUN 12 Creatinine 0.77 Estimated GFR > 60.0 BUN/Creatinine Ratio 15.6 Glucose 105 Lactate 0.9 Calcium 9.0 Magnesium Total Bilirubin 0.8 Conjugated Bilirubin Unconjugated Bilirubin AST 31 ALT 29 Alkaline Phosphatase 67 Total Creatine Kinase CK-MB (CK-2) CK-MB (CK-2) Rel Index Troponin I Total Protein 6.2 L Albumin 3.7 Globulin 2.5 Albumin/Globulin Ratio 1.5 Triglycerides Cholesterol LDL Cholesterol, Calc HDL Cholesterol Amylase 48 Lipase 80 U Opiates 300ng/mL cut Ur Oxycodone Screen Urine Methadone Screen Ur Barbiturates Screen U Tricyclic Antidepress Ur Phencyclidine Scrn Ur Amphetamines Screen U Methamphetamines Scrn Ur MDMA Scrn (Ecstasy) U Benzodiazepines Scrn Urine Cocaine Screen U Marijuana (THC) Screen Ethyl Alcohol COVID-19 PCR 04/18/20 04/18/20 04/18/20 18:00 18:00 18:17 WBC RBC Hgb Hct MCV MCH MCHC RDW Plt Count Neut % (Auto) Lymph % (Auto) [place] % (Auto) Eos % (Auto) Baso % (Auto) Neut # (Auto) Lymph # (Auto) Ramsey # (Auto) Eos # (Auto) Baso # (Auto) PT 11.8 INR 1.0 APTT 31 Sodium Potassium Chloride Carbon Dioxide BUN Creatinine Estimated GFR BUN/Creatinine Ratio Glucose Lactate Calcium Magnesium Total Bilirubin Conjugated Bilirubin Unconjugated Bilirubin AST ALT Alkaline Phosphatase Total Creatine Kinase 311 H CK-MB (CK-2) 4.27 H CK-MB (CK-2) Rel Index 1.4 L Troponin I < 0.012 Total Protein Albumin Globulin Albumin/Globulin Ratio Triglycerides Cholesterol LDL Cholesterol, Calc HDL Cholesterol Amylase Lipase U Opiates 300ng/mL cut Ur Oxycodone Screen Urine Methadone Screen Ur Barbiturates Screen U Tricyclic Antidepress Ur Phencyclidine Scrn Ur Amphetamines Screen U Methamphetamines Scrn Ur MDMA Scrn (Ecstasy) U Benzodiazepines Scrn Urine Cocaine Screen U Marijuana (THC) Screen Ethyl Alcohol COVID-19 PCR Negative 04/18/20 04/18/20 04/18/20 20:04 20:04 20:49 WBC RBC Hgb Hct MCV MCH MCHC RDW Plt Count Neut % (Auto) Lymph % (Auto) [place] % (Auto) Eos % (Auto) Baso % (Auto) Neut # (Auto) Lymph # (Auto) Ramsey # (Auto) Eos # (Auto) Baso # (Auto) PT INR APTT Sodium Potassium Chloride Carbon Dioxide BUN Creatinine Estimated GFR BUN/Creatinine Ratio Glucose Lactate Calcium Magnesium Total Bilirubin 0.8 Conjugated Bilirubin 0.0 Unconjugated Bilirubin 0.7 AST 81 H ALT 29 Alkaline Phosphatase 66 Total Creatine Kinase CK-MB (CK-2) CK-MB (CK-2) Rel Index Troponin I Total Protein 6.3 Albumin 3.7 Globulin 2.6 Albumin/Globulin Ratio 1.4 Triglycerides Cholesterol LDL Cholesterol, Calc HDL Cholesterol Amylase Lipase U Opiates 300ng/mL cut Positive H Ur Oxycodone Screen Negative Urine Methadone Screen Negative Ur Barbiturates Screen Negative U Tricyclic Antidepress Negative Ur Phencyclidine Scrn Negative Ur Amphetamines Screen Negative U Methamphetamines Scrn Negative Ur MDMA Scrn (Ecstasy) Negative U Benzodiazepines Scrn Negative Urine Cocaine Screen Negative U Marijuana (THC) Screen Positive H Ethyl Alcohol < 10 COVID-19 PCR 04/18/20 04/18/20 20:49 20:49 WBC RBC Hgb Hct MCV MCH MCHC RDW Plt Count Neut % (Auto) Lymph % (Auto) Ramsey % (Auto) Eos % (Auto) Baso % (Auto) Neut # (Auto) Lymph # (Auto) Ramsey # (Auto) Eos # (Auto) Baso # (Auto) PT INR APTT Sodium Potassium Chloride Carbon Dioxide BUN Creatinine Estimated GFR BUN/Creatinine Ratio Glucose Lactate Calcium Magnesium 1.6 Total Bilirubin Conjugated Bilirubin Unconjugated Bilirubin AST ALT Alkaline Phosphatase Total Creatine Kinase CK-MB (CK-2) CK-MB (CK-2) Rel Index Troponin I Total Protein Albumin Globulin Albumin/Globulin Ratio Triglycerides 217 H Cholesterol 195 LDL Cholesterol, Calc 105 H HDL Cholesterol 47 Amylase Lipase U Opiates 300ng/mL cut Ur Oxycodone Screen Urine Methadone Screen Ur Barbiturates Screen U Tricyclic Antidepress Ur Phencyclidine Scrn Ur Amphetamines Screen U Methamphetamines Scrn Ur MDMA Scrn (Ecstasy) U Benzodiazepines Scrn Urine Cocaine Screen U Marijuana (THC) Screen Ethyl Alcohol COVID-19 PCR Assessment & Plan Assessment & Plan narrative: Antwan Irizarry will be observed overnight for a suspected alcohol induced pancreatitis. His lipase was within normal limits, however, it appears he is clinically presenting early and is unable to keep food or liquids down. Pancreatitis likely alcoholic related, acute, present on admission -Fluids w/multivitamins, folic acid and thiamine -Dilaudid 2 mg IV q 3 hours for pain -Acetamenophen mg PO/SD q 6 hours prn mild pain -repeat lipase in the am -NPO, progress to clears in the am -holding oral medications Alcohol dependence with potential for withdrawal -last drink more than 24 hours ago -[facility] protocol -IV Ativan 2 mg prn agitation Leukocytosis, acute, present on admission -WBC is 16.7K, neutrophils almost 14,000 -Unknown if stress induced, though high neutrophil count concerning for infection -Start IV ceftriaxone 1 mg tonight one time dose -CBC in the am Elevated blood pressure without a diagnosis of hypertension, acute, present on admission -unknown if stress/pain induced -Labetolol 5 mg IV X 1 Hyperlipidemia, chronic and present on admission -Triglycerides are elevated, LDL under control -Resume atorvastatin 04/19 Obstructive sleep apnea, chronic and present on admission -patient uses a home BiPap machine but did not bring in -RT to set up w/BiPap tonight Narcalepsy, chronic -takes modafinil 200 mg po daily, held now and will resume when he can take oral medications Asthma, chronic -Continue home dose of albuterol inhaler prn and fluticasone/saleterol 250/50 1 inhaled bid VTE prophylaxis: Wells risk score: 0 Enoxaparin 40 mg subQ daily Consults: none Patient is observation status as his stay is not likely to exceed 2 midnights. FEN: Banana bag at 100 ml/hour, NPO, advance as tolerated , CMP and magnesium in the am. Dispo: probable discharge to home Code Status: Full code as discussed with patient COVID-19 COVID-19 status: Negative Result date/Date tested (Pos, Neg/Pending): 04/18/20
[2020-04-18] MEDS: MAGNESIUM SULFATE 2 GM, FOLIC ACID 1 MG, THIAMINE 100 MG, MULTIVITAMIN 10 ML in SODIUM ... IV (21:35)
[2020-04-18] MEDS: SENNOSIDES 8.6 MG TABLET 17.2 MG PO (21:41)
[2020-04-18] MEDS: FLUTICASONE/SALMETEROL 250/50 60 PUFF DISKUS INH (22:22)
[2020-04-18 22:23] LABS: Procalcitonin < 0.05 ng/mL (<0.5)
[2020-04-18] MEDS: CEFTRIAXONE 1 GM/50 ML FROZ.PIGGY IV (22:58)
[2020-04-19] MEDS: HYDROMORPHONE 1 MG INJ IV (02:47)
[2020-04-19 04:00] VITALS: BP 141/64; PULSE 73; RESP 20; TEMP 36.4; O2SAT 94
[2020-04-19] MEDS: HYDROMORPHONE 2 MG INJ IV ×2 (05:06→09:13)
[2020-04-19 05:40] LABS: Add Manual Diff / Slide Review NO; Basophils Absolute Auto 100 /uL (0-100); Basophils Percent Auto 0.5 % (0-2); Eosinophils Absolute Auto 100 /uL (0-450); Eosinophils Percent Auto 0.5 % (2-4); Hematocrit 40.9 % (41-53); Lymphocytes Absolute Auto 2900 /uL (1100-4500); Lymphocytes Percent Auto 20.7 % (25-40); Mean Corpuscular HGB Conc 34.2 % (30-36); Mean Corpuscular Hemoglobin 30.6 PG (26-34); Mean Corpuscular Volume 89.4 fL (80-100); Monocytes Absolute Auto 900 /uL (0-900); Monocytes Percent Auto 6.3 % (3-14); Neutrophils Absolute Auto 10300 /uL (1500-7000); Platelet Count 223 X10^3/uL (150-400); Red Blood Cell Count 4.57 X10^6/uL (4.5-5.9); Red Cell Distribution Width 13.7 % (11.6-14.8); White Blood Cell Count 14.3 X10^3/uL (4.5-11.0)
[2020-04-19 05:50] LABS: Alanine Aminotransferase 24 IU/L (<50); Albumin Globulin Ratio 1.3 (1.0-2.8); Alkaline Phosphatase 54 U/L (38-126); Aspartate Aminotransferase 30 IU/L (17-59); BUN Creatinine Ratio 16.2 (6-22); Bilirubin Total 0.7 mg/dL (0.2-1.3); Blood Urea Nitrogen 12 mg/dL (9-20); Calcium 8.1 mg/dL (8.4-10.2); Carbon Dioxide 29 mmol/L (22-32); Chloride 107 mmol/L (98-107); Estimated Glomerular Filt Rate > 60.0 mL/min (>60); Globulin 2.4 g/dL (1.7-4.1); Glucose 103 mg/dL (80-110); HEMOLYSIS < 15 (0-50); Lipase 73 U/L (23-300); Magnesium 1.7 mg/dL (1.6-2.3); Potassium 3.5 mmol/L (3.4-5.1); Sodium 137 mmol/L (137-145); Total Protein 5.4 g/dL (6.3-8.2)
[2020-04-19 06:45] LABS: Bacteria Urine None Seen; WBC Urine None Seen (0-5/HPF)
[2020-04-19 06:48] LABS: Appearance Urine UA CLEAR; Bilirubin Urine UA NEGATIVE (NEGATIVE); Color Urine UA YELLOW; Glucose Urine UA NEGATIVE (Negative); Ketones Urine UA NEGATIVE (NEGATIVE); Leukocyte Esterase Urine UA NEGATIVE (NEGATIVE); Nitrite Urine UA NEGATIVE (Negative); Occult Blood Urine UA 1+ (Negative); Protein Urine UA 3+ (Negative); Specific Gravity Urine UA 1.025 (1.000-1.035); Urobilinogen Urine UA 0.2 E.U./dL (0.2)
[2020-04-19 06:52] LABS: Culture Indicated Urine Cult Not Indicated; Hyaline Casts Urine 1-5/LPF; RBC Urine 0-1/HPF (0-5/HPF); Squamous Epithelial Cell Urine 0-1 /HPF (0-5/HPF)
[2020-04-19 07:00] VITALS: O2SAT 92
[2020-04-19 07:56] VITALS: BP 150/80; PULSE 71; RESP 20; TEMP 36.8; O2SAT 94
[2020-04-19 08:20] VITALS: PULSE 80; RESP 18; O2SAT 92
[2020-04-19] MEDS: ENOXAPARIN 40 MG/0.4 ML SYRINGE SUBCUT (09:13)
[2020-04-19] MEDS: FOLIC ACID 1 MG TABLET PO (09:13)
[2020-04-19] MEDS: THIAMINE 100 MG TABLET PO (09:13)
[2020-04-19] MEDS: NICOTINE 14 PATCH 14 MG TOP (09:13)
[2020-04-19] MEDS: MULTIVITAMIN 1 TABLET 1 TAB PO (09:13)
[2020-04-19] MEDS: SODIUM CHLORIDE 0.9% FLUSH 10 ML IV (09:14)
[2020-04-19] MEDS: FLUTICASONE/SALMETEROL 250/50 60 PUFF DISKUS INH (09:41)
[2020-04-19 09:42] VITALS: PULSE 80; RESP 18; O2SAT 92
[2020-04-19] MEDS: DEXTROSE 5%-LACTATED RINGERS 1,000 ML 100 ML IV (10:04)
--- NOTE | 2020-04-19 10:34 | PC.NURSE ---
Addendum entered by Farrah Flanagan R.N. 04/19/20 13:22: PATIENT AND SPOUSE CONFIRM UNDERSTANDING OF ALL DC HOME INSTRUCTIONS REVIEWED W/ PATIENT IN HANDOUTS PROVIDED. LEFT BY WC W/ [employer] HAND ESCORT AND SPOUSE TO DRIVE HIM HOME. Addendum entered by Farrah Flanagan R.N. 04/19/20 12:27: Patient denies increased pain after eating 65% of lunch including tuna sandwich and most of soup. Denies nausea. States pain 3-4/10. Dr. Reyes in to check on patient. Original Note: CIWA ZERO. REPORTS ABD PAIN 6/10 RUQ, DOWN TO 3/10 AFTER DILAUDID IVP. DENIES NAUSEA. DR. REYES ROUNDED ON PATIENT. ORDER TO ADVANCE DIET TOLERATED, IF TOLERATED GEN DIET AT LUNCH PERHAPS DC HOME. IVF INFUSING PER ORDERS. HAS TAKEN IN WATER, JELLO, AND THEN CHOCOLATE PUDDING. DENIES ANY CHANGE TO SYMPTOMS, NO N/V, NO INCREASED ABD PAIN. I FEEL ABOUT THE SAME.
[2020-04-19 11:16] VITALS: BP 133/68; PULSE 74; RESP 20; TEMP 37; O2SAT 97
--- NOTE | 2020-04-19 12:30 | P.DS_ITS ---
History of Present Illness History of Present Illness Date Patient Seen: 04/19/20 Chief complaint: Abdominal pain Narrative: Antwan Irizarry is a 60 y.o. male with asthma/COPD, hyperlipidemia, obstructive sleep apnea, tobacco user and increased alcohol use presented with an approximate 24-hour history of fatigue and awoke this am with nausea and vomiting that then transitioned to severe epigastric pain. He has not been able to hold any food or liquids down. 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 in the room states he is also very hard of hearing, and uses a bipap machine, patient states has a very small mask. States he is thirsty, however EMS needed to give him IV zofran on rout to the hospital. states he felt clammy to her, he states he became sweaty from throwing up. Did become short of breath when throwing up, denies left sided chest pain, points to the right side of his lower chest/upper abdomen. Denies dysurea, diarrhea, has not had a bm in 2 days. He has chronic L4-L5 back pain, has been anxious and bored at home since this past winter. In the ED, they did a CT scan of the abdomen and pelvis which noted possible early pancreatitis, he was administered IV morphine and dilaudid for pain and additional doses of zofran for nausea and vomiting. S temp was 98.9?, blood pressure 172/84, heart rate 89, respiratory rate 15, oxygen saturation of 92%, he was 109 kg with a BMI of 33.5. His WBC is elevated 16.7 with a significant left shift of 13,900 neutrophils, electrolytes essentially normal, lactate normal, AST is elevated at 81, creatinine kinase is elevated at 311, triglycerides are elevated at 217 with an LDL of 105, urine is positive for opioids likely reflecting medications given in the ED and THC, alcohol level within normal limits. COVID-19 screen is negative. Discharge Providers Provider Date of admission: 04/18/20 20:22 Discharge Date: 04/19/20 Primary care physician: JENNIFER Edwards Consults: 04/18/20 20:56 Consult to Respiratory Therapy Evaluate & Treat Comment: Uses CPAP or BiPap at night Physician Instructions: Evaluate and treat Discharge provider: Amber Velasquez MD Summary Hospital Course Discharge Diagnosis: 1. Acute pancreatitis 2. Hyperlipidemia 3. ETOH use 4. Obstructive sleep apnea 5. Tobacco dependence 6. COPD/as Hospital Course: Patient was admitted to the hospital for acute pancreatitis. He was made NPO given IV fluid and IV pain medications. Following day he had improvement of his abdominal pain. The patient's diet was advanced. Tolerated without difficulty. He does report continued pain. However his pain is now 3/10 compared to 10/10 on admission. Patient had no further nausea vomiting or abdominal pain. He was deemed appropriate for discharge and arrangements were made for him to discharge home. We discussed smoking cessation and alcohol cessation. The patient reports he has nicotine losengers at home, as well as nicotine patch at home which she will continue to use in an effort to disconti nue smoking. Exam Vital Signs (past 8 hours): - 04/19/20 07:00 04/19/20 07:56 04/19/20 08:20 Temperature 98.2 F Pulse Rate 71 80 Respiratory Rate 20 18 Blood Pressure 150/80 H Pulse Oximetry 92 94 92 04/19/20 09:42 04/19/20 11:16 Temperature 98.6 F Pulse Rate 80 74 Respiratory Rate 18 20 Blood Pressure 133/68 Pulse Oximetry 92 97 Oxygen Delivery Method Room Air Oxygen Flow Rate 0 Narrative Exam Narrative: Pleasant gentleman in no acute distress Lungs: Clear to auscultation CV;RRR nl Sl S2 Abd: soft/ mildly tender/ mildly distended Ext: No Edema Objective Labs Result Diagrams: 04/19/20 05:11 04/19/20 05:11 Labs: Laboratory Results - last 24 hr 04/18/20 04/18/20 04/18/20 18:00 18:00 18:00 WBC 16.7 H RBC 5.21 Hgb 15.8 Hct 46.0 MCV 88.2 MCH 30.3 MCHC 34.3 RDW 13.6 Plt Count 273 Neut % (Auto) 83.3 H Lymph % (Auto) 11.4 L [place] % (Auto) 4.9 Eos % (Auto) 0.0 L Baso % (Auto) 0.4 Neut # (Auto) 06290 H Lymph # (Auto) 1900 [place] # (Auto) 800 Eos # (Auto) 0 Baso # (Auto) 100 PT INR APTT Sodium 137 Potassium 3.7 Chloride 104 Carbon Dioxide 28 BUN 12 Creatinine 0.77 Estimated GFR > 60.0 BUN/Creatinine Ratio 15.6 Glucose 105 Lactate 0.9 Calcium 9.0 Magnesium Total Bilirubin 0.8 Conjugated Bilirubin Unconjugated Bilirubin AST 31 ALT 29 Alkaline Phosphatase 67 Total Creatine Kinase CK-MB (CK-2) CK-MB (CK-2) Rel Index Troponin I Total Protein 6.2 L Albumin 3.7 Globulin 2.5 Albumin/Globulin Ratio 1.5 Triglycerides Cholesterol LDL Cholesterol, Calc HDL Cholesterol Amylase 48 Lipase 80 Procalcitonin Urine Color Urine Appearance Urine pH Ur Specific [place] Urine Protein Urine Glucose (UA) Urine Ketones Urine Occult Blood Urine Nitrate Urine Bilirubin Urine Urobilinogen Ur Leukocyte Esterase Urine RBC Urine WBC Ur Squamous Epith Cells Urine Bacteria Hyaline Casts Ur Culture Indicated? U Opiates 300ng/mL cut Ur Oxycodone Screen Urine Methadone Screen Ur Barbiturates Screen U Tricyclic Antidepress Ur Phencyclidine Scrn Ur Amphetamines Screen U Methamphetamines Scrn Ur MDMA Scrn (Ecstasy) U Benzodiazepines Scrn Urine Cocaine Screen U Marijuana (THC) Screen Ethyl Alcohol COVID-19 PCR 04/18/20 04/18/20 04/18/20 18:00 18:00 18:17 WBC RBC Hgb Hct MCV MCH MCHC RDW Plt Count Neut % (Auto) Lymph % (Auto) [place] % (Auto) Eos % (Auto) Baso % (Auto) Neut # (Auto) Lymph # (Auto) [place] # (Auto) Eos # (Auto) Baso # (Auto) PT 11.8 INR 1.0 APTT 31 Sodium Potassium Chloride Carbon Dioxide BUN Creatinine Estimated GFR BUN/Creatinine Ratio Glucose Lactate Calcium Magnesium Total Bilirubin Conjugated Bilirubin Unconjugated Bilirubin AST ALT Alkaline Phosphatase Total Creatine Kinase 311 H CK-MB (CK-2) 4.27 H CK-MB (CK-2) Rel Index 1.4 L Troponin I < 0.012 Total Protein Albumin Globulin Albumin/Globulin Ratio Triglycerides Cholesterol LDL Cholesterol, Calc HDL Cholesterol Amylase Lipase Procalcitonin Urine Color Urine Appearance Urine pH Ur Specific [place] Urine Protein Urine Glucose (UA) Urine Ketones Urine Occult Blood Urine Nitrate Urine Bilirubin Urine Urobilinogen Ur Leukocyte Esterase Urine RBC Urine WBC Ur Squamous Epith Cells Urine Bacteria Hyaline Casts Ur Culture Indicated? U Opiates 300ng/mL cut Ur Oxycodone Screen Urine Methadone Screen Ur Barbiturates Screen U Tricyclic Antidepress Ur Phencyclidine Scrn Ur Amphetamines Screen U Methamphetamines Scrn Ur MDMA Scrn (Ecstasy) U Benzodiazepines Scrn Urine Cocaine Screen U Marijuana (THC) Screen Ethyl Alcohol COVID-19 PCR Negative 04/18/20 04/18/20 04/18/20 20:04 20:04 20:49 WBC RBC Hgb Hct MCV MCH MCHC RDW Plt Count Neut % (Auto) Lymph % (Auto) [place] % (Auto) Eos % (Auto) Baso % (Auto) Neut # (Auto) Lymph # (Auto) [place] # (Auto) Eos # (Auto) Baso # (Auto) PT INR APTT Sodium Potassium Chloride Carbon Dioxide BUN Creatinine Estimated GFR BUN/Creatinine Ratio Glucose Lactate Calcium Magnesium Total Bilirubin 0.8 Conjugated Bilirubin 0.0 Unconjugated Bilirubin 0.7 AST 81 H ALT 29 Alkaline Phosphatase 66 Total Creatine Kinase CK-MB (CK-2) CK-MB (CK-2) Rel Index Troponin I Total Protein 6.3 Albumin 3.7 Globulin 2.6 Albumin/Globulin Ratio 1.4 Triglycerides Cholesterol LDL Cholesterol, Calc HDL Cholesterol Amylase Lipase Procalcitonin Urine Color Urine Appearance Urine pH Ur Specific [place] Urine Protein Urine Glucose (UA) Urine Ketones Urine Occult Blood Urine Nitrate Urine Bilirubin Urine Urobilinogen Ur Leukocyte Esterase Urine RBC Urine WBC Ur Squamous Epith Cells Urine Bacteria Hyaline Casts Ur Culture Indicated? U Opiates 300ng/mL cut Positive H Ur Oxycodone Screen Negative Urine Methadone Screen Negative Ur Barbiturates Screen Negative U Tricyclic Antidepress Negative Ur Phencyclidine Scrn Negative Ur Amphetamines Screen Negative U Methamphetamines Scrn Negative Ur MDMA Scrn (Ecstasy) Negative U Benzodiazepines Scrn Negative Urine Cocaine Screen Negative U Marijuana (THC) Screen Positive H Ethyl Alcohol < 10 COVID-19 PCR 04/18/20 04/18/20 04/18/20 20:49 20:49 20:49 WBC RBC Hgb Hct MCV MCH MCHC RDW Plt Count Neut % (Auto) Lymph % (Auto) [place] % (Auto) Eos % (Auto) Baso % (Auto) Neut # (Auto) Lymph # (Auto) [place] # (Auto) Eos # (Auto) Baso # (Auto) PT INR APTT Sodium Potassium Chloride Carbon Dioxide BUN Creatinine Estimated GFR BUN/Creatinine Ratio Glucose Lactate Calcium Magnesium 1.6 Total Bilirubin Conjugated Bilirubin Unconjugated Bilirubin AST ALT Alkaline Phosphatase Total Creatine Kinase CK-MB (CK-2) CK-MB (CK-2) Rel Index Troponin I Total Protein Albumin Globulin Albumin/Globulin Ratio Triglycerides 217 H Cholesterol 195 LDL Cholesterol, Calc 105 H HDL Cholesterol 47 Amylase Lipase Procalcitonin < 0.05 Urine Color Urine Appearance Urine pH Ur Specific [place] Urine Protein Urine Glucose (UA) Urine Ketones Urine Occult Blood Urine Nitrate Urine Bilirubin Urine Urobilinogen Ur Leukocyte Esterase Urine RBC Urine WBC Ur Squamous Epith Cells Urine Bacteria Hyaline Casts Ur Culture Indicated? U Opiates 300ng/mL cut Ur Oxycodone Screen Urine Methadone Screen Ur Barbiturates Screen U Tricyclic Antidepress Ur Phencyclidine Scrn Ur Amphetamines Screen U Methamphetamines Scrn Ur MDMA Scrn (Ecstasy) U Benzodiazepines Scrn Urine Cocaine Screen U Marijuana (THC) Screen Ethyl Alcohol COVID-19 PCR 04/19/20 04/19/20 04/19/20 05:11 05:11 06:35 WBC 14.3 H RBC 4.57 Hgb 14.0 Hct 40.9 L MCV 89.4 MCH 30.6 MCHC 34.2 RDW 13.7 Plt Count 223 Neut % (Auto) 72.0 Lymph % (Auto) 20.7 L [place] % (Auto) 6.3 Eos % (Auto) 0.5 L Baso % (Auto) 0.5 Neut # (Auto) 20881 H Lymph # (Auto) 2900 [place] # (Auto) 900 Eos # (Auto) 100 Baso # (Auto) 100 PT INR APTT Sodium 137 Potassium 3.5 Chloride 107 Carbon Dioxide 29 BUN 12 Creatinine 0.74 Estimated GFR > 60.0 BUN/Creatinine Ratio 16.2 Glucose 103 Lactate Calcium 8.1 L Magnesium 1.7 Total Bilirubin 0.7 Conjugated Bilirubin Unconjugated Bilirubin AST 30 ALT 24 Alkaline Phosphatase 54 Total Creatine Kinase CK-MB (CK-2) CK-MB (CK-2) Rel Index Troponin I Total Protein 5.4 L Albumin 3.0 L Globulin 2.4 Albumin/Globulin Ratio 1.3 Triglycerides Cholesterol LDL Cholesterol, Calc HDL Cholesterol Amylase Lipase 73 Procalcitonin Urine Color Yellow Urine Appearance Clear Urine pH 5.0 Ur Specific [place] 1.025 Urine Protein 3+ H Urine Glucose (UA) Negative Urine Ketones Negative Urine Occult Blood 1+ H Urine Nitrate Negative Urine Bilirubin Negative Urine Urobilinogen 0.2 Ur Leukocyte Esterase Negative Urine RBC 0-1/hpf Urine WBC None seen Ur Squamous Epith Cells 0-1 /hpf Urine Bacteria None seen Hyaline Casts 1-5/lpf Ur Culture Indicated? Cult not indicated U Opiates 300ng/mL cut Ur Oxycodone Screen Urine Methadone Screen Ur Barbiturates Screen U Tricyclic Antidepress Ur Phencyclidine Scrn Ur Amphetamines Screen U Methamphetamines Scrn Ur MDMA Scrn (Ecstasy) U Benzodiazepines Scrn Urine Cocaine Screen U Marijuana (THC) Screen Ethyl Alcohol COVID-19 PCR Discharge Plan Discharge Plan Patient Disposition: Home Discharge orders & Medications Prescriptions: Continued cholecalciferol (vitamin D3) 5,000 unit capsule 5,000 unit PO DAILY RF: 0 multivitamin,[id number] [Complete Multivitamin] tablet 1 tab PO DAILY RF: 0 OMEGA 3 FISH OIL See Rx Instructions .ROUTE .COMPLEX RF: 0 Shingrix (PF) 50 mcg/0.5 mL suspension for reconstitution 50 mcg IM ONCE Qty: 1 RF: 1 naproxen 500 mg tablet 500 mg PO BIDCC Qty: 90 RF: 1 fluticasone propion-salmeterol [Advair Diskus] 250-50 mcg/dose blister with device 1 inhalation INHALATION BID Qty: 60 RF: 2 albuterol sulfate [Proventil HFA] 90 mcg/actuation HFA aerosol inhaler 2 puff INHALATION Q4-6H PRN (Reason: Asthma) RF: 0 modafinil 200 mg tablet 200 mg PO QDAY Qty: 90 RF: 1 atorvastatin 10 mg tablet 10 mg PO BEDTIME Qty: 90 RF: 3 No Action (DME) CPAP Supplies Qty: 1 RF: 12 Follow up/Referrals: Adamaris Sutton ARNP [Primary Care Provider] - Discharge Health Status Multidrug resistant organism: No MDRO Diet/Activity/Treatments Diet: Diet as Tolerated Skin/Wound/Dressing Care Report to your healthcare provider any signs of infection, such as:: increased pain Visit Report/Discharge Packet Visit Report Forms: Patient Portal/API, Stroke Signs & Symptoms Discharge Data Primary Care Provider: Adamaris Sutton Attending Provider: Maya Solomon Admit Date/Time: 04/18/20 20:22
--- NOTE | 2020-04-19 15:16 | CM.DPC ---
DCP/Assessment: Reviewed chart. Patient is a 60yr old male admitted to [facility] with abdominal pain. PCP is Adamaris Sutton. Primary payor is 1)[facility] out of [place]. Met with patient explained CM/SW role. Patient alert and oriented at time of visit. Patient reports being I in all ADL's and does not anticipate any needs. Dr. Velasquez reports home today. P: Home EDISON Cabrera Discharge Planning/Care Management CM Discharge Assessment Start: 04/19/20 15:14 Freq: Status: Active Protocol: Document 04/19/20 15:14 KJS (Rec: 04/19/20 15:16 KJS [id number]) Discharge Planning Assessment Assigned Legal Process Specialist EDISON Cabrera Contact Information Esperanza Irizarry (spouse) Advance Directives? No History Provided By Patient,Medical Record Prior Living Arrangements House Household Members spouse Type of transporation used prior to Drives own vehicle admit Independent with ADL's Yes Is patient alert and oriented? Yes Caregiver for Another No Barriers to Discharge No Discharge Plan Home Whiteboard Updated in Patient Room with Yes name and ext. # of Legal Process Specialist Review Status In Process Next Review Type Continued Stay Review
--- NOTE | 2020-04-23 00:17 | PC.NURSE ---
Late Entry: Rocephin infusion initiated 04/18 at 22:58, complete at 00:58. NS infusion initiated 04/18 at 19:48, complete at 9.
== END 2020-04-19 13:25 | disposition home or self-care (01) ==
LOC: ED 18:03 → AC 20:22
PROVIDERS: Admitting Provider Nurse Practitioner Family; Emergency Provider Nurse Practitioner Family; PCP Nurse Practitioner Family; Referring Provider Nurse Practitioner Family; Visit Provider Nurse Practitioner Family
DX: K85.90 Acute pancreatitis without necrosis or infection, unspecified (principal); R10.9 Unspecified abdominal pain; F17.210 Nicotine dependence, cigarettes, uncomplicated; G47.33 Obstructive sleep apnea (adult) (pediatric); J44.9 Chronic obstructive pulmonary disease, unspecified; E78.5 Hyperlipidemia, unspecified; F10.20 Alcohol dependence, uncomplicated; Y90.0 Blood alcohol level of less than 20 mg/100 ml; G47.419 Narcolepsy without cataplexy; Z11.59 Encounter for screening for other viral diseases
CPT/HCPCS: 36415; 74022; 74177; 76705; 80053; 80061; 80076; 80305; 80320; 81001; 82150; 82550; 82553; 83605; 83690; 83735; 84145; 84484; 85025; 85610; 85730; 87086; 87635; 93005; 93010; 94640; 94660; 94760; 96361; 96365; 96366; 96372; 96375; 96376; 99285; G0378; A9270; C9113; J1170; J1650; J2270; J3475; J7121; Q9967

== ENCOUNTER → 2020-05-06 07:41 | Outpatient (CLI) | payer BC, SELFPAY ==
[2020-04-18 20:52] VITALS: BMI 33.5
[2020-05-06 08:28] LABS: Hematocrit 42.4 % (41-53); Hemoglobin 14.5 g/dL (13.5-17.5); Mean Corpuscular HGB Conc 34.2 % (30-36); Mean Corpuscular Hemoglobin 30.6 PG (26-34); Mean Corpuscular Volume 89.5 fL (80-100); Platelet Count 333 X10^3/uL (150-400); Red Blood Cell Count 4.73 X10^6/uL (4.5-5.9); Red Cell Distribution Width 13.1 % (11.6-14.8); White Blood Cell Count 7.1 X10^3/uL (4.5-11.0)
[2020-05-06 08:51] LABS: Alanine Aminotransferase 33 IU/L (<50); Albumin 3.1 g/dL (3.5-5.0); Albumin Globulin Ratio 1.3 (1.0-2.8); Alkaline Phosphatase 56 U/L (38-126); Aspartate Aminotransferase 28 IU/L (17-59); BUN Creatinine Ratio 14.6 (6-22); Bilirubin Total 0.6 mg/dL (0.2-1.3); Blood Urea Nitrogen 12 mg/dL (9-20); Calcium 8.9 mg/dL (8.4-10.2); Carbon Dioxide 31 mmol/L (22-32); Chloride 105 mmol/L (98-107); Cholesterol 165 mg/dL (140-199); Estimated Glomerular Filt Rate > 60.0 mL/min (>60); Globulin 2.3 g/dL (1.7-4.1); Glucose 103 mg/dL (80-110); HDL Cholesterol 43 mg/dL (40-60); HEMOLYSIS < 15 (0-50); LDL Cholesterol Calculated 91 mg/dL (<100); Potassium 4.5 mmol/L (3.4-5.1); Sodium 137 mmol/L (137-145); Total Protein 5.4 g/dL (6.3-8.2); Triglycerides 154 mg/dL (35-150)
== END ==
PROVIDERS: PCP Nurse Practitioner Family; Referring Provider Nurse Practitioner Family; Visit Provider Nurse Practitioner Family
DX: R74.8 Abnormal levels of other serum enzymes (principal); Z87.19 Personal history of other diseases of the digestive system; E78.5 Hyperlipidemia, unspecified
CPT/HCPCS: 36415; 80053; 80061; 85027

== ENCOUNTER → 2020-09-24 08:58 | Outpatient (CLI) | payer BC, SELFPAY ==
[2020-04-18 20:52] VITALS: BMI 33.5
[2020-09-24 09:56] LABS: Alanine Aminotransferase 34 IU/L (<50); Albumin 3.7 g/dL (3.5-5.0); Albumin Globulin Ratio 1.8 (1.0-2.8); Alkaline Phosphatase 68 U/L (38-126); Aspartate Aminotransferase 37 IU/L (17-59); BUN Creatinine Ratio 20.8 (6-22); Bilirubin Total 0.5 mg/dL (0.2-1.3); Blood Urea Nitrogen 16 mg/dL (9-20); Calcium 9.5 mg/dL (8.4-10.2); Carbon Dioxide 30 mmol/L (22-32); Chloride 103 mmol/L (98-107); Estimated Glomerular Filt Rate > 60.0 mL/min (>60); Globulin 2.1 g/dL (1.7-4.1); Glucose 106 mg/dL (80-110); HEMOLYSIS < 15 (0-50); Sodium 137 mmol/L (137-145); Total Protein 5.8 g/dL (6.3-8.2)
[2020-09-27 14:42] LABS: Albumin 3.3 g/dL (2.9-4.4); Alpha-1-Globulin 0.2 g/dL (0.0-0.4); Alpha-2-Globulin 0.9 g/dL (0.4-1.0); Gamma Globulin 0.6 g/dL (0.4-1.8); Globulin Total 2.6 g/dL (2.2-3.9); Protein, Total 5.9 g/dL (6.0-8.5)
== END ==
PROVIDERS: PCP Nurse Practitioner Family; Referring Provider Nurse Practitioner Family; Visit Provider Nurse Practitioner Family
DX: E88.09 Other disorders of plasma-protein metabolism, not elsewhere classified (principal)
CPT/HCPCS: 36415; 80053; 84155; 84165

== ENCOUNTER → 2020-10-20 08:49 | Outpatient (CLI) | payer BC, SELFPAY ==
[2020-04-18 20:52] VITALS: BMI 33.5
[2020-10-21 08:14] LABS: Fecal Immunochemical Test Negative (Negative)
== END ==
PROVIDERS: PCP Nurse Practitioner Family; Referring Provider Nurse Practitioner Family; Visit Provider Nurse Practitioner Family
DX: Z12.11 Encounter for screening for malignant neoplasm of colon (principal)
CPT/HCPCS: 82274

== ENCOUNTER → 2021-06-06 09:09 | Outpatient (CLI) | payer BC, SELFPAY ==
[2020-04-18 20:52] VITALS: BMI 33.5
[2021-06-06 10:14] LABS: Hematocrit 45.2 % (41-53); Hemoglobin 15.7 g/dL (13.5-17.5); Mean Corpuscular HGB Conc 34.6 % (30-36); Mean Corpuscular Hemoglobin 30.5 PG (26-34); Mean Corpuscular Volume 87.9 fL (80-100); Platelet Count 282 X10^3/uL (150-400); Red Blood Cell Count 5.15 X10^6/uL (4.5-5.9); Red Cell Distribution Width 13.1 % (11.6-14.8); White Blood Cell Count 8.9 X10^3/uL (4.5-11.0)
[2021-06-06 11:03] LABS: Alanine Aminotransferase 30 IU/L (<50); Albumin 3.8 g/dL (3.5-5.0); Albumin Globulin Ratio 1.7 (1.0-2.8); Alkaline Phosphatase 63 U/L (38-126); Aspartate Aminotransferase 31 IU/L (17-59); Bilirubin Total 0.5 mg/dL (0.2-1.3); Blood Urea Nitrogen 15 mg/dL (9-20); Calcium 9.8 mg/dL (8.4-10.2); Carbon Dioxide 31 mmol/L (22-32); Chloride 104 mmol/L (98-107); Cholesterol 169 mg/dL (140-199); Estimated Glomerular Filt Rate > 60.0 mL/min (>60); Globulin 2.2 g/dL (1.7-4.1); Glucose 107 mg/dL (80-110); HDL Cholesterol 45 mg/dL (40-60); HEMOLYSIS < 15 (0-50); LDL Cholesterol Calculated 95 mg/dL (<100); Potassium 5.1 mmol/L (3.4-5.1); Sodium 138 mmol/L (137-145); Triglycerides 144 mg/dL (35-150); Uric Acid 8.5 mg/dL (3.5-8.5)
[2021-06-06 11:31] LABS: Prostate Specific Antigen Scrn 1.53 ng/mL (0.1-4.0)
== END ==
PROVIDERS: PCP Nurse Practitioner Family; Referring Provider Nurse Practitioner Family; Visit Provider Nurse Practitioner Family
DX: E78.2 Mixed hyperlipidemia (principal); E88.09 Other disorders of plasma-protein metabolism, not elsewhere classified; J44.9 Chronic obstructive pulmonary disease, unspecified; M10.9 Gout, unspecified; Z00.00 Encounter for general adult medical examination without abnormal findings; Z12.5 Encounter for screening for malignant neoplasm of prostate
CPT/HCPCS: 36415; 80053; 80061; 84550; 85027; G0103

== ENCOUNTER → 2022-05-30 09:30 | Outpatient (CLI) | payer BC, SELFPAY ==
[2020-04-18 20:52] VITALS: BMI 33.5
[2022-05-30 12:30] LABS: COVID19 -Nasal RAPID Negative (Negative)
== END ==
PROVIDERS: PCP Nurse Practitioner; Visit Provider Surgery
DX: Z01.812 Encounter for preprocedural laboratory examination (principal); Z20.822 Contact with and (suspected) exposure to COVID-19
CPT/HCPCS: 87635; C9803

== ENCOUNTER 2022-05-31 13:18 | Day surgery (SDC) | payer BC, SELFPAY ==
[2020-04-18 20:52] VITALS: BMI 33.5
--- NOTE | 2022-05-31 | PATH_ITS ---
[facility] Accession Number: [id number] . 01 Material submitted: . PART A: colon - ASCENDING COLON POLYP PART B: colon - DESCENDING COLON POLYP PART C: colon - SIGMOID COLON POLYP . 01 Diagnosis: A. Ascending Colon Polyp, Biopsy: Sessile serrated adenoma. . B. Descending Colon Polyp, Biopsy: Hyperplastic polyp. . C. Sigmoid Colon Polyp, Biopsy: Hyperplastic polyp. MRV 06/02/2022 1757 Local . 01 Electronically signed: . Maxwell Woods MD, PhD, Pathologist NPI- [id number] . 01 Gross description: . Part A: ASCENDING COLON POLYP: Received in formalin are 2 fragment(s) of ruiz, soft tissue measuring 0.5 x 0.3 x 0.1 cm to 0.3 x 0.2 x 0.1 cm submitted entirely in 1 cassette(s) Part B: DESCENDING COLON POLYP: Received in formalin is 1 fragment(s) of ruiz, soft tissue measuring 0.5 x 0.2 x 0.1 cm submitted entirely in 1 cassette(s) Part C: SIGMOID COLON POLYP: Received in formalin is 1 fragment(s) of ruiz, soft tissue measuring 0.4 x 0.2 x 0.1 cm submitted entirely in 1 cassette(s) /CPE 06/01/2022 0728 Local . 01 Pathologist provided ICD-10: D12.2 . 01 CPT . Q00320, G42062, [id number] Specimen Comment: A courtesy copy of this report has been sent to [phone] Performed at: 01 [facility] [address] [place] [address] [address], [place], [place] [id number] MD Lavell Araiza MD Phone: [phone]
[2022-05-31] MEDS: SODIUM CHLORIDE 0.9% 1,000 ML 125 ML IV (13:57)
[2022-05-31 14:02] VITALS: BP 156/98; PULSE 78; RESP 16; TEMP 36.9; O2SAT 95; BMI 29.8
--- NOTE | 2022-05-31 14:10 | PM.HP.1 ---
History of Present Illness History of Present Illness Chief complaint: SCREENING COLONOSCOPY Narrative: Screening colonoscopy. Last colonoscopy 7-10 years ago. No symptoms Patient History Medical History (Updated 12/07/21 @ 14:15 by JENNIFER Clayton) Asthma (Unknown) Basal cell carcinoma (BCC) COPD (chronic obstructive pulmonary disease) Decreased serum protein level Elevated liver enzymes Gout (Unknown) Hearing loss (Unknown) History of basal cell carcinoma History of pancreatitis Hyperlipidemia Microscopic hematuria (08/2019) Narcolepsy (Unknown) Periodic limb movement disorder (Unknown) REM behavioral disorder (Unknown) Skin lesion Skin lesion of face Sleep apnea (Unknown) Visit for suture removal Surgical History History of basal cell carcinoma excision Family & Social History Family History Mother Brain tumor Father Heart disease Dementia Social History: household members spouse Tobacco & Substance use: Smoking Status Current every day smoker Smoking packs per day 1 alcohol intake current Substance Use Type marijuana Meds Home Medications and Allergies Home Medications Medication Instructions Recorded Confirmed Type CPAP Supplies #1 ea 11/06/17 12/05/21 Rx cholecalciferol (vitamin D3) 125 5,000 unit PO DAILY 12/17/17 05/31/22 History mcg (5,000 unit) capsule multivitamin,[id number] 1 tab PO DAILY 12/17/17 05/31/22 History (Complete Multivitamin tablet) nebulizer and all attachments #1 ea 03/10/21 12/05/21 Rx ipratropium 0.5 mg-albuterol 3 mg 3 ml inhalation Q4-6H PRN 06/09/21 05/31/22 Rx (2.5 mg base)/3 mL nebulization shortness of breath or wheezing soln #12 doses modafinil 200 mg tablet 200 mg PO QDAY #90 tabs 12/05/21 05/31/22 Rx naproxen 500 mg tablet See Rx Instructions .Route 12/05/21 05/31/22 Rx .COMPLEX #180 tabs albuterol sulfate 90 mcg/actuation See Rx Instructions .Route 12/28/21 05/31/22 Rx aerosol inhaler .COMPLEX #8.5 grams atorvastatin 10 mg tablet See Rx Instructions .Route 04/05/22 05/31/22 Rx .COMPLEX #90 tabs Allergies Allergy/AdvReac Type Severity Reaction Status Date / Time No Known Drug Allergies Allergy Verified 05/31/22 13:58 Exam Vital Signs (past 8 hours): - 05/31/22 14:02 Temperature 98.4 F Pulse Rate 78 Respiratory Rate 16 Blood Pressure 156/98 H Pulse Oximetry 95 Oxygen Delivery Method Room Air Oxygen Delivery Method Room Air Narrative Exam Narrative: Oropharynx free of lesions Chest clear to auscultation percussion Cardiac exam reveals no S3 or murmur Assessment & Plan Assessment & Plan narrative: Need for follow-up screening colonoscopy. No history of polyps and no family history. Risks, benefits, alternatives have been explained. Time Spent With Patient Critical Care time: I spent a total of [] minutes of critical care time on this patient's care today; this time is exclusive of procedural time.
--- NOTE | 2022-05-31 14:11 | P.OP.COLON_ITS ---
Operative Date/Time/Diagnoses Date of procedure: 05/31/22 Pre-op diagnosis: See indication and findings Procedure & Clinicians Study performed: Colonoscopy Indications: Screening Surgeon: Cooper Alas Procedure Notes Procedure in detail: After informed consent was obtained the patient was placed in left lateral d ecubitus position. The video colonoscope was introduced the rectum and slowly advanced to cecum. Preparation was excellent. On slow withdrawal mucosa was carefully examined. The scope was removed. The patient tolerated procedure well. Blood loss none Complications none Sedation mac Findings 1. 10 mm polyp in the ascending colon removed in 2 pieces with cold snare. 2. 6 mm polyp in the descending colon removed with cold snare 3. 3 mm polyp in the sigmoid colon removed with Jumbo biopsy forceps 4. Scattered diverticulosis in sigmoid colon We will merely await for pathology results but he may well need follow-up in 5- 10 years, to be determined
[2022-05-31 14:43] VITALS: BP 134/92; PULSE 83; RESP 12; TEMP 36.8; O2SAT 95
[2022-05-31 14:48] VITALS: BP 164/90; PULSE 79; RESP 17; O2SAT 93
[2022-05-31 14:53] VITALS: BP 136/83; PULSE 74; RESP 17; TEMP 36.7; O2SAT 95
[2022-05-31 14:58] VITALS: BP 131/84; PULSE 75; RESP 14; O2SAT 98
== END 2022-05-31 15:15 | disposition home or self-care (01) ==
PROVIDERS: PCP Nurse Practitioner; Referring Provider Internal Medicine Gastroenterology; Visit Provider Internal Medicine Gastroenterology
PROC: 0DJD8ZZ Inspection of Lower Intestinal Tract, Via Natural or Artificial Opening Endoscopic (ICD-10-PCS; CPT 45378; principal; 2022-05-31 14:30)
DX: Z12.11 Encounter for screening for malignant neoplasm of colon (principal); K57.30 Diverticulosis of large intestine without perforation or abscess without bleeding; D12.2 Benign neoplasm of ascending colon
CPT/HCPCS: 45385; 45380; J2704

== ENCOUNTER → 2022-06-07 06:56 | Outpatient (CLI) | payer BC, SELFPAY ==
[2020-04-18 20:52] VITALS: BMI 33.5
[2022-06-07 08:06] LABS: Hematocrit 45.4 % (41-53); Hemoglobin 15.8 g/dL (13.5-17.5); Mean Corpuscular HGB Conc 34.7 % (30-36); Mean Corpuscular Hemoglobin 30.5 PG (26-34); Mean Corpuscular Volume 87.9 fL (80-100); Platelet Count 272 X10^3/uL (150-400); Red Blood Cell Count 5.17 X10^6/uL (4.5-5.9); White Blood Cell Count 7.2 X10^3/uL (4.5-11.0)
[2022-06-07 20:01] LABS: Free T3, Triiodothyronine Free 3.73 pg/mL (2.77-5.27); Free T4, Direct Thyroxine 1.09 ng/dL (0.78-2.19)
[2022-06-07 20:14] LABS: Thyroid Stimulating Hormone 2.05 uIU/mL (0.47-4.68)
[2022-06-07 22:57] LABS: Alanine Aminotransferase 32 IU/L (<50); Albumin 3.6 g/dL (3.5-5.0); Albumin Globulin Ratio 1.6 (1.0-2.8); Alkaline Phosphatase 77 U/L (38-126); Aspartate Aminotransferase 31 IU/L (17-59); BUN Creatinine Ratio 14.8 (6-22); Bilirubin Total 0.4 mg/dL (0.2-1.3); Blood Urea Nitrogen 12 mg/dL (9-20); Calcium 9.3 mg/dL (8.4-10.2); Carbon Dioxide 32 mmol/L (22-32); Chloride 101 mmol/L (98-107); Cholesterol 174 mg/dL (140-199); Estimated Glomerular Filt Rate > 60 mL/min (>60); Globulin 2.3 g/dL (1.7-4.1); Glucose 93 mg/dL (80-110); HDL Cholesterol 47 mg/dL (40-60); HEMOLYSIS < 15 (0-50); LDL Cholesterol Calculated 84 mg/dL (<100); Sodium 139 mmol/L (137-145); Total Protein 5.9 g/dL (6.3-8.2); Triglycerides 216 mg/dL (35-150)
[2022-06-07 23:24] LABS: Prostate Specific Antigen 1.88 ng/mL (0.10-4.00)
== END ==
PROVIDERS: PCP Nurse Practitioner; Referring Provider Nurse Practitioner; Visit Provider Nurse Practitioner
DX: Z00.00 Encounter for general adult medical examination without abnormal findings (principal); Z87.19 Personal history of other diseases of the digestive system
CPT/HCPCS: 36415; 80053; 80061; 84153; 84439; 84443; 84481; 85027

== ENCOUNTER 2022-12-04 11:43 | Emergency (ER) | payer OTHER, SELFPAY ==
[2020-04-18 20:52] VITALS: BMI 33.5
[2022-12-04 11:44] VITALS: BP 195/105; PULSE 71; RESP 16; TEMP 36.6; O2SAT 95; BMI 29.9
--- NOTE | 2022-12-04 11:47 | DI.RAD.S_ITS ---
PROCEDURE: XR FINGER RT MIN 2V INDICATIONS: wood splinter stuck in finger TECHNIQUE: AP hand, 2 views of the 4th finger(s) acquired. COMPARISON: None. FINDINGS: Bones: No fractures or dislocations. No suspicious bony lesions. Soft tissues: No suspicious soft tissue calcifications. No radiopaque foreign body. IMPRESSION: No radiopaque foreign body. Dictated by: Zheng Brown M.D. on 12/04/2022 at 15:08 Approved by: Zheng Brown M.D. on 12/04/2022 at 15:08
--- NOTE | 2022-12-04 12:42 | ED.GENADULT ---
HPI - General Adult <Mark Anthony Viera PA-C - Last Filed: 12/04/22 16:30> General Chief complaint: Extremity Injury, Upper Stated complaint: hunk of wood in Ring fing Rt hand Time Seen by Provider: 12/04/22 11:48 History of Present Illness HPI narrative: 62-year-old male presents to the ED status post a right ring finger injury sustained just prior to arrival. Patient states he was working with some wooden boards, when his finger accidentally slid under 1 of the wooden boards causing the injury. Patient states that he is unable to straighten that right ring finger and it is painful. Patient denies numbness, tingling, weakness. Patient's last tetanus is unknown. Related Data Home Medications Medication Instructions Recorded Confirmed cholecalciferol (vitamin D3) 125 5,000 unit PO DAILY 12/17/17 07/31/22 mcg (5,000 unit) capsule multivitamin,fa-fast-oebhfxpe 1 tab PO DAILY 12/17/17 07/31/22 (Complete Multivitamin tablet) Previous Rx's Medication Instructions Recorded CPAP Supplies #1 ea 11/06/17 nebulizer and all attachments #1 ea 03/10/21 ipratropium 0.5 mg-albuterol 3 mg 3 ml inhalation Q4-6H PRN 06/09/21 (2.5 mg base)/3 mL nebulization shortness of breath or wheezing soln #12 doses atorvastatin 10 mg tablet See Rx Instructions .Route 07/12/22 .COMPLEX #90 tabs modafinil 200 mg tablet 200 mg PO QDAY #90 tabs 07/12/22 allopurinol 100 mg tablet 100 mg PO DAILY #90 tabs 10/24/22 albuterol sulfate 90 mcg/actuation See Rx Instructions .Route 10/30/22 aerosol inhaler .COMPLEX #8.5 grams naproxen 500 mg tablet See Rx Instructions .Route 11/15/22 .COMPLEX #180 tabs indomethacin 50 mg capsule See Rx Instructions .Route 11/24/22 .COMPLEX #30 caps fluticasone 250 mcg-salmeterol 50 1 inh inhalation BID #180 ea 12/07/22 mcg/dose blistr powdr for inhalation (Advair Diskus) Allergies Allergy/AdvReac Type Severity Reaction Status Date / Time No Known Drug Allergies Allergy Verified 07/31/22 10:10 Review of Systems <Mark Anthony Viera PA-C - Last Filed: 12/04/22 16:30> Review of Systems ROS Unobtainable: All systems reviewed & are unremarkable except as noted in HPI and below Constitutional Constitutional: Denies chills, Denies fatigue, Denies fever(s), Denies frequent falls, Denies lethargy and Denies weakness Eyes Eyes: Denies change in vision, Denies eye discharge, Denies irritation and Denies loss of vision ENT Ears, Nose, Mouth, and Throat: Denies change in voice, Denies dizziness, Denies neck pain, Denies sore throat and Denies throat swelling Cardiovascular Cardiovascular: Denies chest pain, Denies irregular heart rhythm, Denies lightheadedness, Denies palpitations, Denies dyspnea, Denies dyspnea on exertion and Denies orthopnea Respiratory Respiratory: Denies cough, Denies dyspnea, Denies dyspnea on exertion and Denies wheezing Gastrointestinal Gastrointestinal: Denies abdominal pain, Denies change in bowel habits, Denies diarrhea, Denies nausea and Denies vomiting Genitourinary Genitourinary: Denies hematuria, Denies flank pain, Denies urinary incontinence and Denies urinary urgency Musculoskeletal Musculoskeletal: Denies back pain, Denies muscle weakness, Denies neck pain, Denies numbness and Denies tingling Comments: Right ring finger pain Integumentary/Breasts Skin/Breast: Denies pruritus, Denies erythema, Denies rash and Denies wounds Neurologic Neurologic: Denies behavioral changes, Denies confusion, Denies dizziness, Denies frequent falls, Denies loss of vision, Denies numbness, Denies tingling and Denies weakness Psychiatric Psychiatric: Denies anxiety, Denies behavioral changes, Denies confusion, Denies depression, Denies homicidal ideation and Denies suicidal ideation Endocrine Endocrine: Denies fatigue, Denies flushing and Denies palpitations Hematologic/Lymphatic Hematologic/Lymphatic: Denies easy bruising Allergic/Immunologic Allergic/Immunologic: Denies urticaria, Denies throat swelling and Denies wheezing Patient History <Mark Anthony Viera PA-C - Last Filed: 12/04/22 16:30> Medical History Asthma (Unknown) Basal cell carcinoma (BCC) COPD (chronic obstructive pulmonary disease) Decreased serum protein level Elevated liver enzymes Gout (Unknown) Hearing loss (Unknown) History of basal cell carcinoma History of pancreatitis Hyperlipidemia Microscopic hematuria (08/2019) Narcolepsy (Unknown) Periodic limb movement disorder (Unknown) REM behavioral disorder (Unknown) Skin lesion Skin lesion of face Sleep apnea (Unknown) Visit for suture removal Surgical History History of basal cell carcinoma excision Family History Mother Brain tumor Father Heart disease Dementia Social History household members: spouse Smoking Status: Current every day smoker Tobacco: How many years used: 40 quit status: considering quitting second hand exposure: No alcohol intake: current substance use type: does not use Smoking Status: Current every day smoker Substance Use Type: marijuana Exam <Mark Anthony Viera PA-C - Last Filed: 12/04/22 16:30> Narrative Exam Narrative: Const General:?cooperative, healthy appearing and comfortable [facility] Head:?normal to inspection Ears:?hearing grossly normal bilaterally Nose:?external nose normal Face and sinus:?normal facial exam and sinuses nontender Mouth:?oral mucosae normal Throat:?posterior oropharynx normal Eyes General:?appearance normal, both eyes and all related structures Neck Neck:?normal visual inspection and no lymphadenopathy noted Resp Effort & Inspection:?normal respiratory effort Auscultation:?clear to auscultation bilaterally Cardio Rate:?regular rate Rhythm:?regular rhythm Musculoskeletal Right ring finger held in flexion, painful to palpation. There is a small abrasion. No active bleeding. Strength and sensation is intact. Full range of motion, although right ring finger range of motion is limited by pain. Patient is neurovascularly intact. Neuro General:?patient alert, patient awake and patient oriented x3 Initial Vital Signs Initial Vital Signs: Vital Signs Temperature 97.8 F 12/04/22 11:44 Pulse Rate 71 12/04/22 11:44 Respiratory Rate 16 12/04/22 11:44 Blood Pressure 195/105 H 12/04/22 11:44 Pulse Oximetry 95 12/04/22 11:44 Oxygen Delivery Method Room Air 12/04/22 11:44 <Antwan Lawrence MD - Last Filed: 12/09/22 12:29> Initial Vital Signs Initial Vital Signs: Vital Signs Temperature 97.8 F 12/04/22 11:44 Pulse Rate 71 12/04/22 11:44 Respiratory Rate 16 12/04/22 11:44 Blood Pressure 195/105 H 12/04/22 11:44 Pulse Oximetry 95 12/04/22 11:44 Oxygen Delivery Method Room Air 12/04/22 11:44 Procedures <Mark Anthony Viera PA-C - Last Filed: 12/04/22 16:30> Foreign Body OTHER Foreign Body Removal Site: hand Description of foreign body: other (Wood splinter) Sedation/Analgesia: none Technique: removal with forceps Confirmed by:: direct visualization, patient report and palpation Complications: none Post-procedure exam: awake, alert, normal BP, normal HR and normal O2 sat Neurovascular: normal distal pulse, normal capillary fill, distal light touch sensation intact, distal motor function normal, no signs of compartment syndrome and no change from pre-procedure Course <Mark Anthony Viera PA-C - Last Filed: 12/04/22 16:30> Orders Ordered: Discontinued Medications Diphtheria/Tetanus/Acell Pertussis (Tet,Diph,Pertuss(Acell),Vac/Pf 0.5 Ml Syringe) 0.5 ml IM .ONCE ONE Stop: 12/04/22 11:51 Last Admin: 12/04/22 12:58 Dose: 0.5 ml Documented By: GUI Ibuprofen (Ibuprofen 400 Mg Tablet) 800 mg PO NOW ONE Stop: 12/04/22 11:49 Last Admin: 12/04/22 12:58 Dose: 800 mg Documented By: CTS Vital Signs Vital signs: Vital Signs - 8 hr 12/04/22 11:44 12/04/22 13:44 Temperature 97.8 F Pulse Rate 71 60 Respiratory Rate 16 16 Blood Pressure 195/105 H 180/103 H Pulse Oximetry 95 97 Oxygen Delivery Method Room Air Room Air <Antwan Lawrence MD - Last Filed: 12/09/22 12:29> Orders Ordered: Discontinued Medications Diphtheria/Tetanus/Acell Pertussis (Tet,Diph,Pertuss(Acell),Vac/Pf 0.5 Ml Syringe) 0.5 ml IM .ONCE ONE Stop: 12/04/22 11:51 Last Admin: 12/04/22 12:58 Dose: 0.5 ml Documented By: CTS Ibuprofen (Ibuprofen 400 Mg Tablet) 800 mg PO NOW ONE Stop: 12/04/22 11:49 Last Admin: 12/04/22 12:58 Dose: 800 mg Documented By: GUI Vital Signs Vital signs: Vital Signs - 8 hr 12/04/22 11:44 12/04/22 13:44 Temperature 97.8 F Pulse Rate 71 60 Respiratory Rate 16 16 Blood Pressure 195/105 H 180/103 H Pulse Oximetry 95 97 Oxygen Delivery Method Room Air Room Air Medical Decision Making <Mark Anthony Viera PA-C - Last Filed: 12/04/22 16:30> MDM Narrative Medical decision making narrative: 62-year-old male presents to the ED status post a right ring finger injury sustained just prior to arrival. Concern for fracture/dislocation. Will obtain x-ray. Will update tetanus. Will give ibuprofen for pain. Will reassess. X-ray negative for fractures or dislocations. There was a splinter that was retrieved with forceps. ED return precautions discussed with patient. Patient verbalized understanding. Medical records reviewed: Yes Discharge Plan Departure Patient Disposition: Home Clinical Impression: Wood splinter in finger Instructions: DI for Splinter Removal Activity Restrictions/Additional Instructions: You were evaluated in the ED today for a finger injury. We x-rayed your finger, there is no apparent fracture or dislocation, however we will call you once the radiologist has the official read. A splinter was successfully removed from your right ring finger, after which your pain significantly improved. Please return to the ED if you continue to have pain and feel that might be an other splinter embedded. Your tetanus was also updated in the ED today. Please follow-up with your PCP as soon as possible. Prescriptions: No Action cholecalciferol (vitamin D3) 5,000 unit capsule 5,000 unit PO DAILY multivitamin,ek-[id number] [Complete Multivitamin] tablet 1 tab PO DAILY (DME) CPAP Supplies Qty: 1 12RF Dose Instruction: As directed Rx Instructions: Please dispense needed CPAP supplies atorvastatin 10 mg tablet See Rx Instructions .ROUTE .COMPLEX Qty: 90 3RF Dose Instruction: take 1 tablet by mouth at bedtime Rx Instructions: take 1 tablet by mouth at bedtime modafinil 200 mg tablet 200 mg PO QDAY Qty: 90 3RF allopurinol 100 mg tablet 100 mg PO DAILY Qty: 90 3RF albuterol sulfate 90 mcg/actuation HFA aerosol inhaler See Rx Instructions .ROUTE .COMPLEX Qty: 8.5 3RF Dose Instruction: Inhale 2 puffs by mouth every 4 to 6 hours as needed for shortness of breath or wheezing. Rx Instructions: Inhale 2 puffs by mouth every 4 to 6 hours as needed for shortness of breath or wheezing. naproxen 500 mg tablet See Rx Instructions .ROUTE .COMPLEX Qty: 180 0RF Dose Instruction: Take 1 tablet by mouth twice daily with meals. Rx Instructions: Take 1 tablet by mouth twice daily with meals. indomethacin 50 mg capsule See Rx Instructions .ROUTE .COMPLEX Qty: 30 1RF Dose Instruction: Take 1 capsule by mouth three times daily as needed for gouty arthritis. Take with food or milk. Rx Instructions: Take 1 capsule by mouth three times daily as needed for gouty arthritis. Take with food or milk. fluticasone propion-salmeterol [Advair Diskus] 250-50 mcg/dose blister with device 1 inh inhalation BID Qty: 180 3RF ipratropium-albuterol 0.5 mg-3 mg(2.5 mg base)/3 mL solution for nebulization 3 ml inhalation Q4-6H PRN (Reason: shortness of breath or wheezing) Qty: 12 3RF (DME) nebulizer and all attachments See Rx Instructions .Route .MEDSUPPLY Qty: 1 0RF Rx Instructions: As directed Referrals: Marie Sena ARNP [Primary Care Provider] - Stand Alone Forms: Patient Portal/API <Antwan Lawrence MD - Last Filed: 12/09/22 12:29> Cosign ED Attending Costyronature Attestation: I was immediately available in the department for consultation. This documentation has been reviewed and I agree with assessment and plan. Supervised by Antwan Lawrence MD
[2022-12-04] MEDS: TET,DIPH,PERTUSS(ACELL),VAC/PF 0.5 ML SYRINGE IM (12:58)
[2022-12-04] MEDS: IBUPROFEN 400 MG TABLET 800 MG PO (12:58)
[2022-12-04 13:44] VITALS: BP 180/103; PULSE 60; RESP 16; O2SAT 97
--- NOTE | 2022-12-04 13:50 | PC.NURSE ---
splinter removed with sterile hemostats. pt tolerated well. bandaid applied.
== END 2022-12-04 13:51 | disposition home or self-care (01) ==
PROVIDERS: Emergency Provider Student in an Organized Health Care Education/Training Program; PCP Nurse Practitioner
DX: S60.454A Superficial foreign body of right ring finger, initial encounter (principal); W45.8XXA Other foreign body or object entering through skin, initial encounter; Z23 Encounter for immunization
CPT/HCPCS: 73140; 90471; 99283; 99284; 90715

== ENCOUNTER → 2023-08-09 09:11 | Outpatient (CLI) | payer OTHER, SELFPAY ==
[2020-04-18 20:52] VITALS: BMI 33.5
[2023-08-09 10:16] LABS: Add Manual Diff / Slide Review NO; Basophils Absolute Auto 100 /uL (0-100); Basophils Percent Auto 0.8 % (0-2); Eosinophils Absolute Auto 400 /uL (0-450); Eosinophils Percent Auto 5.1 % (2-4); Hematocrit 43.6 % (41-53); Hemoglobin 15.2 g/dL (13.5-17.5); Lymphocytes Absolute Auto 2400 /uL (1100-4500); Lymphocytes Percent Auto 33.4 % (25-40); Mean Corpuscular HGB Conc 34.8 % (30-36); Mean Corpuscular Hemoglobin 31.2 PG (26-34); Mean Corpuscular Volume 89.6 fL (80-100); Monocytes Absolute Auto 500 /uL (0-900); Monocytes Percent Auto 7.3 % (3-14); Neutrophils Absolute Auto 3900 /uL (1500-7000); Neutrophils Percent Auto 53.4 % (50-75); Platelet Count 240 X10^3/uL (150-400); Red Blood Cell Count 4.87 X10^6/uL (4.5-5.9); Red Cell Distribution Width 13.3 % (11.6-14.8); White Blood Cell Count 7.3 X10^3/uL (4.5-11.0)
[2023-08-09 10:45] LABS: Alanine Aminotransferase 32 IU/L (<50); Albumin 2.9 g/dL (3.5-5.0); Albumin Globulin Ratio 1.3 (1.0-2.8); Alkaline Phosphatase 58 U/L (38-126); Aspartate Aminotransferase 32 IU/L (17-59); BUN Creatinine Ratio 14.5 (6-22); Bilirubin Total 0.6 mg/dL (0.2-1.3); Blood Urea Nitrogen 12 mg/dL (9-20); Calcium 8.9 mg/dL (8.4-10.2); Carbon Dioxide 28 mmol/L (22-32); Chloride 105 mmol/L (98-107); Cholesterol 152 mg/dL (140-199); Estimated Glomerular Filt Rate > 60 mL/min (>60); Globulin 2.3 g/dL (1.7-4.1); Glucose 102 mg/dL (80-110); HDL Cholesterol 46 mg/dL (40-60); HEMOLYSIS < 15 (0-50); LDL Cholesterol Calculated 80 mg/dL (<100); Potassium 4.1 mmol/L (3.4-5.1); Sodium 137 mmol/L (137-145); Total Protein 5.2 g/dL (6.3-8.2); Triglycerides 129 mg/dL (35-150); Uric Acid 6.2 mg/dL (3.5-8.5)
[2023-08-09 10:57] LABS: Free T3, Triiodothyronine Free 4.23 pg/mL (2.77-5.27); Free T4, Direct Thyroxine 1.08 ng/dL (0.78-2.19)
[2023-08-09 11:11] LABS: Thyroid Stimulating Hormone 1.73 uIU/mL (0.47-4.68)
[2023-08-09 15:47] LABS: HIV 1 & 2 Ab/Ag 4th Gen Combo NEGATIVE (NEGATIVE)
[2023-08-09 16:05] LABS: Creatinine Urine Random 180.3 mg/dL
[2023-08-09 16:57] LABS: Microalbumi Creatinin Ratio Ur 8530.2 ug/mg CR (<30)
[2023-08-13 18:29] LABS: Fecal Immunochemical Test Negative (Negative)
== END ==
PROVIDERS: PCP Nurse Practitioner; Referring Provider Nurse Practitioner; Visit Provider Nurse Practitioner
DX: Z00.00 Encounter for general adult medical examination without abnormal findings (principal); Z11.4 Encounter for screening for human immunodeficiency virus [HIV]; M10.9 Gout, unspecified; Z12.11 Encounter for screening for malignant neoplasm of colon
CPT/HCPCS: 36415; 80053; 80061; 82043; 82274; 82570; 84439; 84443; 84481; 84550; 85025; 87389

== ENCOUNTER → 2023-09-25 06:51 | Outpatient (CLI) | payer OTHER, SELFPAY ==
[2020-04-18 20:52] VITALS: BMI 33.5
--- NOTE | 2023-09-25 06:53 | DI.ECHO.S_ITS ---
[place] [facility]---------+ [facility] +---------+ : : [address] : : : : [id number] : : : : Phone: [phone] Echocardiogram Report + + :Name: BOB GRACE Study Date: 09/25/2023 Height: 71 in : :[facility] ReadingLocation: Weight: 225 lb : : Gender: Male BSA: 2.2 m2 : :: 1960 Age: 63 yrs BP: 160/97 mmHg: :Reason For Study: HYPERTENSION : :Ordering Physician: MATILDA, : :MARY Performed By: Chalo Willard : :Referring: MARY GREY : + + Interpretation Summary Left ventricular wall thickness is mildly increased. The ejection fraction is estimated to be 60-65%. Grade I diastolic dysfunction. The right ventricle is borderline dilated. The right ventricular systolic function is normal. No significant valvular abnormalities. Pulmonary artery pressures cannot be estimated because of the lack of a measurable TR jet velocity but the IVC suggests a CVP of around 3 mmHg. Procedure: A two-dimensional transthoracic echocardiogram with color flow and Doppler was performed. The study quality was technically adequate. There is no prior echocardiogram noted for this patient. The patient was in normal sinus rhythm during the exam. The heart rate ranged between 60-69 bpm during the study. Left Ventricle: The left ventricle is normal in size. Left ventricular wall thickness is mildly increased. The ejection fraction is estimated to be 60- 65%. Diastolic parameters suggest a relaxation abnormality of the left ventricle, consistent with probable normal filling pressures. Right Ventricle: The right ventricle is borderline dilated. The right ventricular systolic function is normal. Atria: The left atrial size is normal. Right atrial size is normal. The interatrial septum grossly appears intact with no obvious evidence for an atrial septal defect. Mitral Valve: The mitral valve is normal in structure and function. There is no mitral valve stenosis. There is trace mitral regurgitation. Aortic Valve: The aortic valve is trileaflet. The aortic valve is slightly calcified. There is no aortic valve stenosis. No aortic regurgitation is present. Tricuspid Valve: The tricuspid valve is normal in structure and function. There is no tricuspid stenosis. No tricuspid regurgitation. Pulmonary artery pressures cannot be estimated because of the lack of a measurable TR jet velocity but the IVC suggests a CVP of around 3 mmHg. Pulmonic Valve: The pulmonic valve is not well visualized. There is no pulmonic valvular stenosis. There is no pulmonic valvular regurgitation. Great Vessels: The aortic root is normal size. The ascending aorta is at the upper limits of normal in size. The IVC is of normal diameter and collapses greater than 50% with a sniff. This suggests a low right atrial pressure of 3 mm Hg. Pericardium/ Pleura There is no pericardial effusion. There is no pleural effusion. MMode/2D Measurements & Calculations LVIDd: 4.4 cm LVOT diam: 2.0 cm LVIDs: 3.1 cm Ao root diam: 3.4 cm FS: 29.1 % asc Aorta Diam: 3.8 cm IVSd: 1.3 cm Ao Arch Diam (Prox Trans): 2.9 cm LVPWd: 1.2 cm LV rowe. diameter/BSA (cm/m^2): 2.0 LV sys. diameter/BSA (cm/m^2): 1.4 LA A2 area: 26.6 cm2 RA long axis: 4.7 cm LA A4 area: 19.1 cm2 RA area: 18.5 cm2 LA length (vol): 5.8 cm RA vol: 61.4 ml LA vol: 74.2 ml RA : 27.7 ml/m2 LA vol index: 33.5 ml/m2 IVC diam: 1.3 cm RVD1 (basal): 4.1 cm RVD2 (mid): 3.6 cm TAPSE: 2.8 cm Doppler Measurements & Calculations Ao V2 max: 148.1 cm/sec LVOT Max Sammy: 125.3 cm/sec Ao V2 mean: 107.6 cm/sec LV V1 max P.3 mmHg Ao max P.8 mmHg LV V1 VTI: 30.0 cm Ao mean P.1 mmHg FELICE(I,D): 2.9 cm2 Ao V2 VTI: 34.0 cm FELICE(V,D): 2.8 cm2 sev ratio: 0.88 FELICE indexed to BSA (cm^2/m^2): 1.3 MV E max sammy: 76.8 cm/sec PA V2 max: 125.0 cm/sec MV A max sammy: 70.0 cm/sec PA V2 mean: 84.6 cm/sec MV E/A: 1.1 PA mean P.2 mmHg Med Peak E' Sammy: 11.1 cm/sec PA pr(Accel): 32.8 mmHg E/E' med: 6.9 Lat Peak E' Sammy: 10.9 cm/sec E/E' lat: 7.0 E/e' average: 7.0 MV dec time: 0.22 sec SV(LVOT): 98.5 ml Reading Physician:06:14 PM
== END ==
LOC: ECHO 06:52
PROVIDERS: PCP Nurse Practitioner; Referring Provider Nurse Practitioner; Visit Provider Nurse Practitioner
DX: I10 Essential (primary) hypertension (principal)
CPT/HCPCS: 93005; 93306

== ENCOUNTER → 2023-10-23 15:06 | Outpatient (CLI) | payer OTHER, SELFPAY ==
[2020-04-18 20:52] VITALS: BMI 33.5
[2023-10-23 15:58] LABS: Alanine Aminotransferase 20 IU/L (<50); Albumin 3.5 g/dL (3.5-5.0); Albumin Globulin Ratio 1.5 (1.0-2.8); Alkaline Phosphatase 79 U/L (38-126); Aspartate Aminotransferase 26 IU/L (17-59); BUN Creatinine Ratio 18.2 (6-22); Bilirubin Total 0.4 mg/dL (0.2-1.3); Blood Urea Nitrogen 16 mg/dL (9-20); Calcium 8.9 mg/dL (8.4-10.2); Carbon Dioxide 27 mmol/L (22-32); Chloride 110 mmol/L (98-107); Estimated Glomerular Filt Rate > 60 mL/min (>60); Globulin 2.3 g/dL (1.7-4.1); Glucose 109 mg/dL (80-110); HEMOLYSIS < 15 (0-50); Potassium 4.2 mmol/L (3.4-5.1); Sodium 137 mmol/L (137-145); Total Protein 5.8 g/dL (6.3-8.2)
[2023-10-23 20:46] LABS: Microalbumin Urine Random > 228.0 mg/dL (0-1.6)
[2023-10-23 20:47] LABS: Creatinine Urine Random 204.4 mg/dL; Microalbumi Creatinin Ratio Ur 1115.4 ug/mg CR (<30)
== END ==
PROVIDERS: PCP Nurse Practitioner; Referring Provider Nurse Practitioner; Visit Provider Nurse Practitioner
DX: I10 Essential (primary) hypertension (principal); R80.9 Proteinuria, unspecified
CPT/HCPCS: 80053; 82043; 82570

== ENCOUNTER → 2024-05-08 10:13 | Outpatient (CLI) | payer OTHER, SELFPAY ==
[2020-04-18 20:52] VITALS: BMI 33.5
[2024-05-08 11:39] LABS: Add Manual Diff / Slide Review NO; Basophils Absolute Auto 100 /uL (0-100); Basophils Percent Auto 1.2 % (0-2); Eosinophils Absolute Auto 400 /uL (0-450); Eosinophils Percent Auto 5.7 % (2-4); Hematocrit 51.1 % (41-53); Hemoglobin 17.2 g/dL (13.5-17.5); Lymphocytes Absolute Auto 2000 /uL (1100-4500); Lymphocytes Percent Auto 26.2 % (25-40); Mean Corpuscular HGB Conc 33.6 % (30-36); Mean Corpuscular Hemoglobin 30.7 PG (26-34); Mean Corpuscular Volume 91.3 fL (80-100); Monocytes Absolute Auto 600 /uL (0-900); Monocytes Percent Auto 8.1 % (3-14); Neutrophils Absolute Auto 4500 /uL (1500-7000); Neutrophils Percent Auto 58.8 % (50-75); Platelet Count 253 X10^3/uL (150-400); Red Blood Cell Count 5.59 X10^6/uL (4.5-5.9); Red Cell Distribution Width 13.4 % (11.6-14.8); White Blood Cell Count 7.6 X10^3/uL (4.5-11.0)
[2024-05-08 12:04] LABS: Alanine Aminotransferase 19 IU/L (<50); Albumin 2.8 g/dL (3.5-5.0); Albumin Globulin Ratio 1.3 (1.0-2.8); Alkaline Phosphatase 72 U/L (38-126); Aspartate Aminotransferase 25 IU/L (17-59); BUN Creatinine Ratio 18.8 (6-22); Bilirubin Total 0.5 mg/dL (0.2-1.3); Blood Urea Nitrogen 18 mg/dL (9-20); Calcium 8.9 mg/dL (8.4-10.2); Carbon Dioxide 31 mmol/L (22-32); Chloride 106 mmol/L (98-107); Estimated Glomerular Filt Rate > 60 mL/min (>60); Globulin 2.2 g/dL (1.7-4.1); Glucose 91 mg/dL (80-110); HEMOLYSIS < 15 (0-50); Potassium 4.7 mmol/L (3.4-5.1); Sodium 137 mmol/L (137-145)
== END ==
PROVIDERS: PCP Internal Medicine; Referring Provider Internal Medicine; Visit Provider Internal Medicine
DX: I10 Essential (primary) hypertension (principal); E78.5 Hyperlipidemia, unspecified; R51.9 Headache, unspecified; R80.9 Proteinuria, unspecified
CPT/HCPCS: 36415; 80053; 85025; 85652

== ENCOUNTER → 2024-07-03 10:00 | Outpatient (CLI) | payer OTHER, SELFPAY ==
[2020-04-18 20:52] VITALS: BMI 33.5
[2024-07-03 11:12] LABS: Add Manual Diff / Slide Review NO; Basophils Absolute Auto 100 /uL (0-100); Basophils Percent Auto 1.2 % (0-2); Eosinophils Absolute Auto 300 /uL (0-450); Eosinophils Percent Auto 3.8 % (2-4); Hematocrit 50.4 % (41-53); Hemoglobin 17.3 g/dL (13.5-17.5); Lymphocytes Absolute Auto 2200 /uL (1100-4500); Lymphocytes Percent Auto 28.2 % (25-40); Mean Corpuscular HGB Conc 34.2 % (30-36); Mean Corpuscular Hemoglobin 30.6 PG (26-34); Mean Corpuscular Volume 89.2 fL (80-100); Monocytes Absolute Auto 600 /uL (0-900); Monocytes Percent Auto 7.6 % (3-14); Neutrophils Absolute Auto 4700 /uL (1500-7000); Neutrophils Percent Auto 59.2 % (50-75); Platelet Count 306 X10^3/uL (150-400); Red Blood Cell Count 5.65 X10^6/uL (4.5-5.9); Red Cell Distribution Width 13.4 % (11.6-14.8)
[2024-07-03 11:29] LABS: BUN Creatinine Ratio 17.5 (6-22); Blood Urea Nitrogen 20 mg/dL (9-20); C-Reactive Protein Quant 0.5 mg/dL (<1.0); Calcium 9.9 mg/dL (8.4-10.2); Carbon Dioxide 31 mmol/L (22-32); Chloride 101 mmol/L (98-107); Estimated Glomerular Filt Rate > 60 mL/min (>60); Glucose 105 mg/dL (80-110); HEMOLYSIS < 15 (0-50); Potassium 4.6 mmol/L (3.4-5.1); Sodium 135 mmol/L (137-145)
[2024-07-03 12:40] LABS: Erythrocyte Sedimentation Rate 4 MM/HR (0-15)
== END ==
PROVIDERS: PCP Nurse Practitioner Family; Referring Provider Nurse Practitioner Family; Visit Provider Nurse Practitioner Family
DX: R22.1 Localized swelling, mass and lump, neck (principal)
CPT/HCPCS: 36415; 80048; 85025; 85651; 86140

== ENCOUNTER → 2024-07-11 11:08 | Outpatient (CLI) | payer OTHER, SELFPAY ==
[2020-04-18 20:52] VITALS: BMI 33.5
--- NOTE | 2024-07-11 11:09 | DI.CT.S_ITS ---
PROCEDURE: CT SOFT TISSUE NECK W CON INDICATIONS: palpable lump right side of neck, smoker TECHNIQUE: After the administration of intravenous contrast, 3.0 mm axial sections acquired from the sella to the aortic arch. Additional oblique axial 3.0 mm sections acquired through the pharynx. 3 mm thick coronal and sagittal reformats were generated. For radiation dose reduction, the following was used: automated exposure control. COMPARISON: None. FINDINGS: Image quality: Excellent. Lymph nodes: Right level 2A lymph node measuring 2.4 x 2.3 cm series 2, image 32. Vessels: Visualized vasculature appears patent. Neck spaces: The oropharynx, nasopharynx, and pharynx demonstrate no mucosal lesions. The vocal cords, false vocal cords, pyriform sinuses, epiglottis, vallecula, and tongue base all appear normal. Extramucosal spaces appear unremarkable. Glands: The parotid and submandibular glands appear normal. Thyroid gland demonstrates calcification within the right lobe. No priors.. Miscellaneous: Visualized brain and orbits appear normal. Lung apices appear clear. Superficial soft tissues appear normal. 5.1 x 3.3 cm right intramuscular lipoma. Bones: No suspicious bony lesions. Visualized sinuses and mastoids appear unremarkable. IMPRESSION: 2.4 x 2.3 cm enlarged right level 2A lymph node. Finding is concerning for malignancy. No primary source is identified. However, FNA/biopsy and/or ENT consultation is recommended for direct visualization within the supra and infrahyoid neck. Calcification within the right thyroid lobe. Dictated by: Vernell Horner M.D. on 07/11/2024 at 15:51 Approved by: Vernell Horner M.D. on 07/11/2024 at 16:00
== END ==
PROVIDERS: PCP Nurse Practitioner Family; Referring Provider Nurse Practitioner Family; Visit Provider Nurse Practitioner Family
DX: R22.1 Localized swelling, mass and lump, neck (principal); R59.0 Localized enlarged lymph nodes
CPT/HCPCS: 70491; Q9967

== ENCOUNTER → 2024-10-10 14:21 | Outpatient (CLI) | payer OTHER, SELFPAY ==
[2020-04-18 20:52] VITALS: BMI 33.5
--- NOTE | 2024-10-10 14:22 | DI.US.S_ITS ---
PROCEDURE: US FINE NEEDLE ASPIRATION INDICATIONS: Lymph Node TECHNIQUE: The indications, alternatives, benefits, risks, and complications of the procedure were explained to the patient. Written informed consent was obtained and placed in the chart. Real-time sonography was utilized to choose the site for percutaneous lymph node sampling. The skin was prepped and draped in the usual sterile fashion. 1% lidocaine was infiltrated down to the site of interest. Serial hypodermic needles were then advanced into the site of interest under direct sonographic visualization, and serial needle aspirates were obtained. The needles were then withdrawn; a bandage was applied to the procedure site. COMPARISON: [facility], CT, CT SOFT TISSUE NECK W CON, 07/11/2024, 11:13. FINDINGS: Sample site(s): Right level 2A lymph node identified on the 07/11/2024 CT neck soft tissue examination Needle: 25 gauge needles x5, 18 gauge needle x1. Number of passes: 7, including at unsuccessful biopsy attempt with an 18 gauge core biopsy needle Medications: 1% lidocaine for local anaesthesia. Complications: None. IMPRESSION: Successful ultrasound-guided right level 2A lymph node fine needle aspiration, with cytology results pending. Dictated by: Jayden Hilton M.D. on 10/14/2024 at 11:01 Approved by: Jayden Hilton M.D. on 10/14/2024 at 11:02
--- NOTE | 2024-10-10 14:30 | PATH_ITS ---
Note [facility] Accession Number: [id number] TESTS RESULT FLAG UNITS REF RANGE LAB Clinician Provided Cytology Information No. of containers..01 Other (Miscellaneous) Source: RIGHT NECK LYMPH NODE DIAGNOSIS: RIGHT NECK LYMPH NODE INADEQUATE, INSUFFICIENT CELLS FOR STUDY. Pathologist ICD10: 01 R22.1 Signed out by: Kyara Rivas MD, Pathologist NPI- [id number] Performed by: Antwan Anne, [place] ([facility]) Gross description: 30 CC, COLORLESS, CLEAR RECIEVED: IN CYTOLYT WITH BLUE CAP CONTAINER.VO /VDU 10/13/2024 0903 Local FLAG LEGEND: L-Low Normal,H-High Normal,LL-Alert Low,HH-Alert High <-Panic Low,>-Panic High,A-Abnormal,AA-Critical Abnormal Performed at: 01 =Z [facility] [address], [place] [address] Lavell Araiza MD, Performed at: 01 [facility] [address], [place], [place] [id number] MD Lavell Araiza MD Phone: [phone]
== END ==
PROVIDERS: PCP Nurse Practitioner Family; Referring Provider Nurse Practitioner Family; Visit Provider Radiology Diagnostic Radiology
DX: R22.1 Localized swelling, mass and lump, neck (principal)
CPT/HCPCS: 10005

== ENCOUNTER → 2024-11-26 09:07 | Outpatient (CLI) | payer OTHER, SELFPAY ==
[2020-04-18 20:52] VITALS: BMI 33.5
--- NOTE | 2024-11-26 09:08 | DI.CT.S_ITS ---
PROCEDURE: CT SOFT TISSUE NECK W CON INDICATIONS: CERVICAL LYMPHADENITIS TECHNIQUE: After the administration of intravenous contrast, 3.0 mm axial sections acquired from the sella to the aortic arch. Additional oblique axial 3.0 mm sections acquired through the pharynx. 3 mm thick coronal and sagittal reformats were generated. For radiation dose reduction, the following was used: automated exposure control. COMPARISON: [facility], CT, CT SOFT TISSUE NECK W CON, 07/11/2024, 11:13. FINDINGS: Image quality: Excellent. Lymph nodes: 2.1 centimeter short axis right level 2A lymph node. Vessels: Visualized vasculature appears patent. Neck spaces: The oropharynx, nasopharynx, and pharynx demonstrate no mucosal lesions. The vocal cords, false vocal cords, pyriform sinuses, epiglottis, vallecula, and tongue base all appear normal. Extramucosal spaces appear unremarkable. Glands: The parotid and submandibular glands appear normal. Thyroid gland contains a 6 millimeter punctate calcification. Miscellaneous: Visualized brain and orbits appear normal. Lung apices appear clear. Centrilobular emphysematous changes in the lung apices. Right lateral/subscapular chest wall lipoma. Bones: No suspicious bony lesions. Spine degenerative disc disease and facet arthropathy. Visualized sinuses and mastoids appear unremarkable. IMPRESSION: 2.1 centimeter right level 2A lymphadenopathy without significant change compared to July 11, 2024. Finding could represent reactive or neoplastic process. Consider biopsy for additional evaluation. Dictated by: Barbi Bravo MD, PhD on 11/26/2024 at 11:51 Approved by: Barbi Bravo MD, PhD on 11/26/2024 at 11:58
[2024-11-26 10:13] LABS: Estimated Glomerular Filt Rate > 60 mL/min (>60)
== END ==
PROVIDERS: PCP Nurse Practitioner Family; Referring Provider Otolaryngology; Visit Provider Otolaryngology
DX: I88.9 Nonspecific lymphadenitis, unspecified (principal); D17.1 Benign lipomatous neoplasm of skin and subcutaneous tissue of trunk
CPT/HCPCS: 36415; 70491; 82565; Q9967

== ENCOUNTER 2025-04-03 14:55 | Emergency (ER) | payer OTHER, MEDICARE, SELFPAY ==
[2020-04-18 20:52] VITALS: BMI 33.5
[2025-04-03] VITALS (14 sets, daily range): BP systolic 112–135; BP diastolic 55–75; PULSE 66–82; RESP 12–20; TEMP 36.7–36.9; O2SAT 93–96; BMI 29.9
[2025-04-03 15:51] LABS: Add Manual Diff / Slide Review NO; Hematocrit 41.7 % (41-53); Hemoglobin 14.0 g/dL (13.5-17.5); Lymphocytes Absolute Auto 1400 /uL (1100-4500); Mean Corpuscular HGB Conc 33.7 % (30-36); Mean Corpuscular Hemoglobin 30.0 PG (26-34); Mean Corpuscular Volume 89.1 fL (80-100); Platelet Count 259 X10^3/uL (150-400)
--- NOTE | 2025-04-03 16:00 | EKG_ITS ---
[address] [address] Test Date: 2025-04-03 Pat Name: Antwan Irizarry Department: [facility] Room: Gender: Male Supervisor [employer] Department: GHADA : 1960 Requested By: Order Number: [id number] Reading MD: Daron Rodriguez Measurements Intervals [place] Rate: 76 P: 81 DE: 182 QRS: 51 QRSD: 92 T: 2 QT: 346 QTc: 389 Interpretive Statements Normal sinus rhythm T wave abnormality, consider lateral ischemia Electronically Signed On 04-03-2025 18:46:49 PDT by Daron Rodriguez
[2025-04-03 16:02] LABS: Alanine Aminotransferase 13 IU/L (<50); Albumin 3.4 g/dL (3.5-5.0); Albumin Globulin Ratio 1.2 (1.0-2.8); Alkaline Phosphatase 75 U/L (38-126); Blood Urea Nitrogen 20 mg/dL (9-20); Calcium 8.6 mg/dL (8.4-10.2); Carbon Dioxide 30 mmol/L (22-32); Chloride 98 mmol/L (98-107); Estimated Glomerular Filt Rate 44 mL/min (>60); Globulin 2.8 g/dL (1.7-4.1); Glucose 92 mg/dL (70-99); HEMOLYSIS < 15 (0-50); Lipase 21 U/L (23-300); Potassium 3.6 mmol/L (3.4-5.1); Sodium 132 mmol/L (137-145); Total Protein 6.2 g/dL (6.3-8.2)
--- NOTE | 2025-04-03 16:25 | DI.CT.S_ITS ---
PROCEDURE: CT SOFT TISSUE NECK W CON INDICATIONS: recent R lymph node biopsy; swelling pain TECHNIQUE: After the administration of intravenous contrast, 3.0 mm axial sections acquired from the sella to the aortic arch. Additional oblique axial 3.0 mm sections acquired through the pharynx. 3 mm thick coronal and sagittal reformats were generated. For radiation dose reduction, the following was used: automated exposure control. COMPARISON: [facility], [place], PET NECK TO MID THIGH, 01/16/2025, 9:06. [facility], [place], CT SOFT TISSUE NECK W CON, 11/26/2024, 10:39. FINDINGS: Image quality: Excellent. Lymph nodes: Central necrotic right 2 B lymph node measuring 3.1 cm in short axis. Vessels: Visualized vasculature appears patent. Neck spaces: Subcutaneous stranding within the right neck. The oropharynx, nasopharynx, and pharynx demonstrate no mucosal lesions. The vocal cords, false vocal cords, pyriform sinuses, epiglottis, vallecula, and tongue base all appear normal. Extramucosal spaces appear unremarkable. Glands: The parotid and submandibular glands appear normal. Thyroid gland demonstrates no significant abnormality. Miscellaneous: Visualized brain and orbits appear normal. Lung apices demonstrate emphysematous changes. Superficial soft tissues appear normal. Bones: No suspicious bony lesions. Degenerative changes of the spine. Visualized sinuses and mastoids appear unremarkable. IMPRESSION: Central necrotic lymph node in the right neck measuring 3.1 cm in short axis with surrounding fat stranding. Hematoma or abscess is also in the differential given history of recent lymph node resection. Dictated by: Jamey Garza M.D. on 04/03/2025 at 17:09 Approved by: Jamey Garza M.D. on 04/03/2025 at 17:12
--- NOTE | 2025-04-03 16:25 | DI.CT.S_ITS ---
PROCEDURE: CT CHEST ABD PEL W CON INDICATIONS: infx; R sided abd flank pain; wheezing TECHNIQUE: After the administration of intravenous contrast, 5 mm thick sections acquired from the lung apices to the symphysis. 5 mm coronal and sagittal reformats were performed, with additional 7 mm MIP reformats through the lungs. For radiation dose reduction, the following was used: automated exposure control, adjustment of mA and/or kV according to patient size. COMPARISON: [place], [place], PET NECK TO MID THIGH, 01/16/2025, 9:06. FINDINGS: Image quality: Excellent. CHEST: Lower Neck: No enlarged lymph nodes. Thyroid: No thyroid nodules which require sonographic follow up, per consensus guidelines. Axillae: No enlarged lymph nodes. Chest Wall: Unremarkable. Lungs and Pleura: No pneumothorax or pleural effusions. [id number] paraseptal and centrilobular emphysematous changes. Triangular-shaped subpleural nodules within the bilateral lower lobes. Scattered additional micro nodules measuring 3 mm or less. Heart: Heart size is normal. Moderate coronary artery calcifications. Trace pericardial effusion. Thoracic Vessels: The aorta and pulmonary arteries demonstrate normal size. Mediastinum and Alessandra: No enlarged lymph nodes. Esophagus: No wall thickening. No hiatal hernia. ABDOMEN: Liver: No solid mass. Gallbladder: No radiopaque gallstones or wall thickening. Biliary ducts: No biliary dilation. Pancreas: No ductal dilation. Spleen: Size is within normal limits. Adrenal Glands: No adrenal nodules. Kidneys and Ureters: Mild bilateral perinephric stranding peer No hydronephrosis. No solid mass. No complex renal cystic lesion which requires follow up. Stomach and Bowel: Normal colonic caliber, without significant wall thickening. Diverticulosis without evidence of acute diverticulitis. Normal appendix. Peritoneum: No abnormal intraperitoneal fluid. No free air. Ventral Wall: No significant ventral hernia. Abdominal Nodes: No retroperitoneal or mesenteric adenopathy by size criteria. Vessels: Aorta and inferior vena cava are normal in size. Atherosclerotic vascular calcifications. PELVIS: Pelvic Organs: Unremarkable. Bladder: No bladder wall thickening, accounting for underdistention. Pelvic Nodes: No enlarged lymph nodes. Miscellaneous: No inguinal hernias are seen. Bones: No aggressive osseous abnormality. Degenerative changes of the spine. IMPRESSION: 1. Mild bilateral perinephric stranding is nonspecific, correlate with urinalysis to exclude infection. 2. Otherwise, no acute findings within the chest, abdomen or pelvis. No peripancreatic inflammation. 3. Lower lobe triangular shaped pulmonary nodules are favored represent intrapulmonary lymph nodes. Scattered additional pulmonary micro nodules measuring 3 mm or less. Attention on follow-up imaging. 4. Please see above for additional findings. Dictated by: Jamey Garza M.D. on 04/03/2025 at 17:13 Approved by: Jamey Garza M.D. on 04/03/2025 at 17:20
--- NOTE | 2025-04-03 16:25 | DI.CT.S_ITS ---
PROCEDURE: CT HEAD/BRAIN WO CON INDICATIONS: headache dizzy TECHNIQUE: Noncontrast 4.5 mm thick angled axial sections acquired from the foramen magnum to the vertex, with coronal and sagittal reformats. For radiation dose reduction, the following was used: automated exposure control, adjustment of mA and/or kV according to patient size. COMPARISON: None. FINDINGS: Image quality: Diagnostic. CSF spaces: Basal cisterns are patent. No extra-axial fluid collections. Ventricles are normal in size and shape. Brain: No midline shift. No intracranial mass effect or hemorrhage. López- white matter interface is normal. Skull and face: Calvarium and visualized facial bones are intact, without suspicious lesions. Sinuses: Visualized sinuses and mastoids are clear. IMPRESSION: No acute intracranial pathology. Dictated by: Jamey Garza M.D. on 04/03/2025 at 17:03 Approved by: Jamey Garza M.D. on 04/03/2025 at 17:05
--- NOTE | 2025-04-03 16:31 | ED_ITS ---
HPI - Abdominal Pain <Florinda Medrano PA-C - Last Filed: 04/03/25 19:49> General Chief Complaint: Abdominal Pain Stated Complaint: pancreatitis? has had previous episodes Time Seen by Provider: 04/03/25 16:05 Source: patient Mode of arrival: Ambulatory History of Present Illness HPI narrative: Mr. 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 Patient states his symptoms began on Sunday. Reports awaking up with blurred vision both eyes, frontal headache, diffuse abdominal back and flank pain worse on the right side. He has not had a bowel movement 2 days. States that his most significant pain is the right side of his abdomen. States that his symptoms do feel similar to when he had pancreatitis due to alcohol in the past. States that he is also having some right sided neck pain however this has been present since having his lymph nodes removed in January, his tonsils were also removed at this time. Reports feeling both fevers and chills. Denies chest pain or shortness of breath, he does have some cough at baseline. Related Data Home Medications ?Medication ?Instructions ?Recorded ?Confirmed cholecalciferol (vitamin D3) 125 5,000 unit PO DAILY 0 12/17/17 07/03/24 mcg (5,000 unit) capsule multivitamin,[id number] 1 tab PO DAILY 12/17/17 07/03/24 (Complete Multivitamin tablet) Previous Rx's ?Medication ?Instructions ?Recorded CPAP Supplies #1 ea 11/06/17 nebulizer and all attachments #1 ea 03/10/21 ipratropium 0.5 mg-albuterol 3 mg 3 ml inhalation Q4-6 H PRN 06/09/21 (2.5 mg base)/3 mL nebulization shortness of breath or wheezing soln #12 doses fluticasone 250 mcg-salmeterol 50 1 inh inhalation BID #180 ea 10/23/23 mcg/dose blistr powdr for inhalation (Advair Diskus) albuterol sulfate 90 mcg/actuation See Rx Instructions .Route 01/28/24 aerosol inhaler .COMPLEX #8.5 grams hydrochlorothiazide 25 mg tablet 25 mg PO DAILY #90 ta bs 05/08/24 allopurinol 100 mg tablet 100 mg PO DAILY #90 tabs lisinopril 20 mg tablet 20 mg PO DAILY #90 tabs 10/30 03/26 naproxen 500 mg tablet 500 mg PO BID #180 tabs 10/30 03/26 modafinil 200 mg tablet 200 mg PO DAILY #90 tabs cefixime 400 mg capsule 400 mg PO DAILY 14 days #14 caps 04/03/25 Allergies Allergy/AdvReac Type Severity Reaction Status Date / Time No Known Drug Allergies Allergy Verified 07/03/24 09:25 Review of Systems <Florinda Medrano PA-C - Last Filed: 04/03/25 19:49> Review of Systems ROS Unobtainable: All systems reviewed & are unremarkable except as noted in HPI and below Patient History <Florinda Medrano PA-C - Last Filed: 04/03/25 19:49> Medical History Smoker Proteinuria Gouty arthritis High blood triglycerides (05/09/17) Asthma Obstructive sleep apnea syndrome (05/12/16) Hypertension Skin lesion of face Decreased serum protein level History of basal cell carcinoma Elevated liver enzymes History of pancreatitis Visit for suture removal Basal cell carcinoma (BCC) Skin lesion COPD (chronic obstructive pulmonary disease) Hyperlipidemia Microscopic hematuria (08/2019) Asthma (Unknown) Gout (Unknown) REM behavioral disorder (Unknown) Periodic limb movement disorder (Unknown) Narcolepsy (Unknown) Hearing loss (Unknown) Sleep apnea (Unknown) Surgical History History of basal cell carcinoma excision Family History Mother Brain tumor Father Heart disease Dementia Social History household members: spouse Smoking Status: Current some day smoker Tobacco: How many years used: 40 quit status: considering quitting second hand exposure: No alcohol intake: current substance use type: does not use Smoking Status: Current some day smoker Exam <Florinda Medrano PA-C - Last Filed: 04/03/25 19:49> Narrative Exam Narrative: GENERAL: 65 year old patient appears stated age. Well-developed patient, in no acute distress. HEAD: Atraumatic. Normocephalic. EYES: PERRL. Extraocular motions intact. No scleral icterus. No injection or drainage. ENT: Nose without bleeding, purulent drainage. Throat with very mild posterior oropharyngeal erythema, uvula is midline, tonsils are surgically absent. Airway patent. NECK: Trachea midline. Cervical ROM intact. Right-sided cervical lymphadenopathy/fullness that is tender. No overlying erythema or crepitus. CARDIOVASCULAR: Regular rate and rhythm. RESPIRATORY: ?Nonlabored respirations. ?Speaking in clear, full sentences. ?Pain expiratory wheezing throughout. GASTROINTESTINAL: Abdomen soft, nondistended. Tenderness to palpation diffusely, worse on the right side of the abdomen. EXTREMITIES: No LE edema. NEURO: AOx3. ?Clear speech. ?Moves all 4 extremities appropriately. SKIN: No rash or erythema of visible areas Initial Vital Signs Initial Vital Signs: Vital Signs Temperature 98.5 F 04/03/25 15:26 Pulse Rate 82 04/03/25 15:26 Respiratory Rate 18 04/03/25 15:26 Blood Pressure 118/57 L 04/03/25 15:26 Pulse Oximetry 96 04/03/25 15:26 Oxygen Delivery Method Room Air 04/03/25 15:26 <Carina Baker DO - Last Filed: 04/03/25 23:37> Initial Vital Signs Initial Vital Signs: Vital Signs Temperature 98.5 F 04/03/25 15:26 Pulse Rate 82 04/03/25 15:26 Respiratory Rate 18 04/03/25 15:26 Blood Pressure 118/57 L 04/03/25 15:26 Pulse Oximetry 96 04/03/25 15:26 Oxygen Delivery Method Room Air 04/03/25 15:26 Course <Florinda Medrano PA-C - Last Filed: 04/03/25 19:49> Orders Ordered: ED Orders 04/03/25 15:34 EKG-12 Lead Stat 04/03/25 15:35 Complete Blood Count AUTO DIFF Stat Comprehensive Metabolic Panel Stat Lipase Stat Procalcitonin Stat 04/03/25 16:25 CT chest abd pel w con Stat CT head/brain wo con Stat CT soft tissue neck w con Stat 04/03/25 16:38 Blood Culture Stat Lactate (Lactic Acid) Stat Troponin & CK Cardiac Panel Stat 04/03/25 18:19 Urine Microscopic Stat Discontinued Medications Sodium Chloride (Normal Saline 0.9%) 1,000 mls @ 1,000 mls/hr IV BOLUS ONE Stop: 04/03/25 17:24 Last Infusion: 04/03/25 17:56 Dose: Infused Documented By: Admin: 04/03/25 16:34 Dose: 1,000 mls/hr Documented By: LE Ampicillin Sodium/Sulbactam (Sodium 3 gm/ Sodium Chloride) 100 mls @ 200 mls/hr IV NOW ONE Stop: 04/03/25 18:03 Last Infusion: 04/03/25 18:57 Dose: Infused Documented By: Infusion: 04/03/25 18:20 Dose: 200 mls/hr Documented By: Infusion: 04/03/25 18:18 Dose: 0 mls/hr Documented By: Admin: 04/03/25 18:14 Dose: 200 mls/hr Documented By: LE Acetaminophen (Ofirmev) 1,000 mg in 100 mls @ 400 mls/hr IV NOW ONE Stop: 04/03/25 18:23 Last Infusion: 04/03/25 19:27 Dose: Infused Documented By: Admin: 04/03/25 18:58 Dose: 400 mls/hr Documented By: LE Morphine Sulfate (Morphine 4 Mg/Ml Inj) 4 mg IV NOW ONE Stop: 04/03/25 16:26 Last Admin: 04/03/25 16:34 Dose: 4 mg Documented By: LE Ondansetron HCl (Ondansetron 4 Mg/2 Ml Inj) 4 mg IV NOW PRN PRN Reason: Nausea And Vomiting Ondansetron HCl (Ondansetron 4 Mg Odt) 4 mg PO NOW PRN PRN Reason: Nausea And Vomiting Ondansetron HCl (Ondansetron 4 Mg/2 Ml Inj) 4 mg IV NOW ONE Stop: 04/03/25 16:26 Last Admin: 04/03/25 16:33 Dose: 4 mg Documented By: LE Vital Signs Vital signs: Vital Signs - 8 hr 04/03/25 16:07 04/03/25 16:10 04/03/25 16:30 Temperature Pulse Rate 75 Respiratory Rate 15 Blood Pressure 112/60 133/63 Pulse Oximetry 95 Oxygen Delivery Method 04/03/25 16:30 04/03/25 16:58 04/03/25 16:58 Temperature Pulse Rate 75 80 Respiratory Rate 19 Blood Pressure 125/75 Pulse Oximetry 93 95 Oxygen Delivery Method 04/03/25 17:00 04/03/25 17:00 04/03/25 17:30 Temperature Pulse Rate 74 72 Respiratory Rate 17 18 Blood Pressure 130/64 Pulse Oximetry 94 93 Oxygen Delivery Method Room Air 04/03/25 17:30 04/03/25 18:00 04/03/25 18:00 Temperature Pulse Rate 71 Respiratory Rate 18 Blood Pressure 125/60 114/61 Pulse Oximetry 94 Oxygen Delivery Method 04/03/25 18:23 04/03/25 18:23 04/03/25 18:30 Temperature Pulse Rate 73 69 Respiratory Rate 18 12 Blood Pressure 135/63 Pulse Oximetry 94 93 Oxygen Delivery Method 04/03/25 18:31 04/03/25 18:31 04/03/25 19:00 Temperature Pulse Rate 69 69 Respiratory Rate 16 18 Blood Pressure 117/55 L Pulse Oximetry 93 93 Oxygen Delivery Method Room Air 04/03/25 19:00 04/03/25 19:30 04/03/25 19:30 Temperature Pulse Rate 66 Respiratory Rate 15 Blood Pressure 113/56 L 116/61 Pulse Oximetry 94 Oxygen Delivery Method 04/03/25 20:35 Temperature 98.0 F Pulse Rate 66 Respiratory Rate 20 Blood Pressure 116/61 Pulse Oximetry 93 Oxygen Delivery Method Room Air <Carina Baker, - Last Filed: 04/03/25 23:37> Orders Ordered: ED Orders 04/03/25 15:34 EKG-12 Lead Stat 04/03/25 15:35 Complete Blood Count AUTO DIFF Stat Comprehensive Metabolic Panel Stat Lipase Stat Procalcitonin Stat 04/03/25 16:25 CT chest abd pel w con Stat CT head/brain wo con Stat CT soft tissue neck w con Stat 04/03/25 16:38 Blood Culture Stat Lactate (Lactic Acid) Stat Troponin & CK Cardiac Panel Stat 04/03/25 18:19 Urine Microscopic Stat Discontinued Medications Sodium Chloride (Normal Saline 0.9%) 1,000 mls @ 1,000 mls/hr IV BOLUS ONE Stop: 04/03/25 17:24 Last Infusion: 04/03/25 17:56 Dose: Infused Documented By: Admin: 04/03/25 16:34 Dose: 1,000 mls/hr Documented By: LE Ampicillin Sodium/Sulbactam (Sodium 3 gm/ Sodium Chloride) 100 mls @ 200 mls/hr IV NOW ONE Stop: 04/03/25 18:03 Last Infusion: 04/03/25 18:57 Dose: Infused Documented By: Infusion: 04/03/25 18:20 Dose: 200 mls/hr Documented By: Infusion: 04/03/25 18:18 Dose: 0 mls/hr Documented By: Admin: 04/03/25 18:14 Dose: 200 mls/hr Documented By: LE Acetaminophen (Ofirmev) 1,000 mg in 100 mls @ 400 mls/hr IV NOW ONE Stop: 04/03/25 18:23 Last Infusion: 04/03/25 19:27 Dose: Infused Documented By: Admin: 04/03/25 18:58 Dose: 400 mls/hr Documented By: LE Morphine Sulfate (Morphine 4 Mg/Ml Inj) 4 mg IV NOW ONE Stop: 04/03/25 16:26 Last Admin: 04/03/25 16:34 Dose: 4 mg Documented By: LE Ondansetron HCl (Ondansetron 4 Mg/2 Ml Inj) 4 mg IV NOW PRN PRN Reason: Nausea And Vomiting Ondansetron HCl (Ondansetron 4 Mg Odt) 4 mg PO NOW PRN PRN Reason: Nausea And Vomiting Ondansetron HCl (Ondansetron 4 Mg/2 Ml Inj) 4 mg IV NOW ONE Stop: 04/03/25 16:26 Last Admin: 04/03/25 16:33 Dose: 4 mg Documented By: LE Vital Signs Vital signs: Vital Signs - 8 hr 04/03/25 16:07 04/03/25 16:10 04/03/25 16:30 Temperature Pulse Rate 75 Respiratory Rate 15 Blood Pressure 112/60 133/63 Pulse Oximetry 95 Oxygen Delivery Method 04/03/25 16:30 04/03/25 16:58 04/03/25 16:58 Temperature Pulse Rate 75 80 Respiratory Rate 19 Blood Pressure 125/75 Pulse Oximetry 93 95 Oxygen Delivery Method 04/03/25 17:00 04/03/25 17:00 04/03/25 17:30 Temperature Pulse Rate 74 72 Respiratory Rate 17 18 Blood Pressure 130/64 Pulse Oximetry 94 93 Oxygen Delivery Method Room Air 04/03/25 17:30 04/03/25 18:00 04/03/25 18:00 Temperature Pulse Rate 71 Respiratory Rate 18 Blood Pressure 125/60 114/61 Pulse Oximetry 94 Oxygen Delivery Method 04/03/25 18:23 04/03/25 18:23 04/03/25 18:30 Temperature Pulse Rate 73 69 Respiratory Rate 18 12 Blood Pressure 135/63 Pulse Oximetry 94 93 Oxygen Delivery Method 04/03/25 18:31 04/03/25 18:31 04/03/25 19:00 Temperature Pulse Rate 69 69 Respiratory Rate 16 18 Blood Pressure 117/55 L Pulse Oximetry 93 93 Oxygen Delivery Method Room Air 04/03/25 19:00 04/03/25 19:30 04/03/25 19:30 Temperature Pulse Rate 66 Respiratory Rate 15 Blood Pressure 113/56 L 116/61 Pulse Oximetry 94 Oxygen Delivery Method 04/03/25 20:35 Temperature 98.0 F Pulse Rate 66 Respiratory Rate 20 Blood Pressure 116/61 Pulse Oximetry 93 Oxygen Delivery Method Room Air MDM - Abdominal Pain <Florinda Medrano PA-C - Last Filed: 04/03/25 19:49> Medical Records Attestation: I reviewed the patient's medical records. Lab Data 04/03/25 15:35 04/03/25 15:35 Labs: Lab Results 04/03/25 04/03/25 04/03/25 Range/Units 15:35 16:38 18:19 WBC 18.9 H (4.5-11.0) X10^3/uL RBC 4.68 (4.5-5.9) X10^6/uL Hgb 14.0 (13.5-17.5) g/dL Hct 41.7 (41-53) % MCV 89.1 (80-100) fL MCH 30.0 (26-34) PG MCHC 33.7 (30-36) % RDW 14.0 (11.6-14.8) % Plt Count 259 (150-400) X10^3/uL Neut % (Auto) 85.5 H (50-75) % Lymph % (Auto) 7.4 L (25-40) % [place] % (Auto) 6.4 (3-14) % Eos % (Auto) 0.1 L (2-4) % Baso % (Auto) 0.6 (0-2) % Neut # (Auto) 48556 H (0767-0397) /uL Lymph # (Auto) 1400 (3784-5416) /uL [place] # (Auto) 1200 H (0-900) /uL Eos # (Auto) 0 (0-450) /uL Baso # (Auto) 100 (0-100) /uL Sodium 132 L (137-145) mmol/L Potassium 3.6 (3.4-5.1) mmol/L Chloride 98 (98-107) mmol/L Carbon Dioxide 30 (22-32) mmol/L BUN 20 (9-20) mg/dL Creatinine 1.70 H (0.66-1.25) mg/dL Estimated GFR 44 L (>60) mL/min BUN/Creatinine Ratio 11.8 (6-22) Glucose 92 (70-99) mg/dL Lactate 0.6 L (0.7-2.1) mmol/L Calcium 8.6 (8.4-10.2) mg/dL Total Bilirubin 1.0 (0.2-1.3) mg/dL AST 18 (17-59) IU/L ALT 13 (<50) IU/L Alkaline Phosphatase 75 (38-126) U/L Total Creatine Kinase 77 (55-170) U/L Troponin I < 0.012 (0.01-0.034) ng/mL Total Protein 6.2 L (6.3-8.2) g/dL Albumin 3.4 L (3.5-5.0) g/dL Globulin 2.8 (1.7-4.1) g/dL Albumin/Globulin Ratio 1.2 (1.0-2.8) Lipase 21 L (23-300) U/L Procalcitonin 0.383 (<0.5) ng/mL Urine RBC 0-1/hpf (0-5/HPF) Urine WBC 1-5/hpf (0-5/HPF) Ur Squamous Epith Cells 0-1 /hpf (0-5/HPF) Urine Bacteria None seen (None) Hyaline Casts 0-1/lpf (None) Granular Casts 0-1/lpf (None) Ur Culture Indicated? Cult not indicated Vol Urine Centrifuged 10ml (spun) Point of care testing: Urine Dip Bedside Urine Glucose Negative Bedside Urine Bilirubin - Negative Bedside Urine Ketone - Negative Urine Specific [place] 1.010 Bedside Urine Occult Blood + Bedside Urine pH 5.5 Bedside Urine Protein +++ 300 Bedside Urine Urobilinogen - Negative Bedside Urine Nitrite - Negative Bedside Urine Leukocytes - Negative Esterase Imaging Data Soft Tissue Neck CT: Radiologist's Impression: PROCEDURE: CT SOFT TISSUE NECK W CON INDICATIONS: recent R lymph node biopsy; swelling pain TECHNIQUE: After the administration of intravenous contrast, 3.0 mm axial sections acquired from the sella to the aortic arch. Additional oblique axial 3.0 mm sections acquired through the pharynx. 3 mm thick coronal and sagittal reformats were generated. For radiation dose reduction, the following was used: automated exposure control. COMPARISON: [place], [place], PET NECK TO MID THIGH, 01/16/2025, 9:06. [facility], CT, CT SOFT TISSUE NECK W CON, 11/26/2024, 10:39. FINDINGS: Image quality: Excellent. Lymph nodes: Central necrotic right 2 B lymph node measuring 3.1 cm in short axis. Vessels: Visualized vasculature appears patent. Neck spaces: Subcutaneous stranding within the right neck. The oropharynx, nasopharynx, and pharynx demonstrate no mucosal lesions. The vocal cords, false vocal cords, pyriform sinuses, epiglottis, vallecula, and tongue base all appear normal. Extramucosal spaces appear unremarkable. Glands: The parotid and submandibular glands appear normal. Thyroid gland demonstrates no significant abnormality. Miscellaneous: Visualized brain and orbits appear normal. Lung apices demonstrate emphysematous changes. Superficial soft tissues appear normal. Bones: No suspicious bony lesions. Degenerative changes of the spine. Visualized sinuses and mastoids appear unremarkable. IMPRESSION: Central necrotic lymph node in the right neck measuring 3.1 cm in short axis with surrounding fat stranding. Hematoma or abscess is also in the differential given history of recent lymph node resection. Dictated by: Jamey Garza M.D. on 04/03/2025 at 17:09 Approved by: Jamey Garza M.D. on 04/03/2025 at 17:12 CT scan - head: Radiologist's Impression: PROCEDURE: CT HEAD/BRAIN WO CON INDICATIONS: headache dizzy TECHNIQUE: Noncontrast 4.5 mm thick angled axial sections acquired from the foramen magnum to the vertex, with coronal and sagittal reformats. For radiation dose reduction, the following was used: automated exposure control, adjustment of mA and/or kV according to patient size. COMPARISON: None. FINDINGS: Image quality: Diagnostic. CSF spaces: Basal cisterns are patent. No extra-axial fluid collections. Ventricles are normal in size and shape. Brain: No midline shift. No intracranial mass effect or hemorrhage. López- white matter interface is normal. Skull and face: Calvarium and visualized facial bones are intact, without suspicious lesions. Sinuses: Visualized sinuses and mastoids are clear. IMPRESSION: No acute intracranial pathology. Dictated by: Jamey Garza M.D. on 04/03/2025 at 17:03 Approved by: Jamey Garza M.D. on 04/03/2025 at 17:05 CT Scan Chest/ABd/Pelvis: Radiologist's Impression: PROCEDURE: CT CHEST ABD PEL W CON INDICATIONS: infx; R sided abd flank pain; wheezing TECHNIQUE: After the administration of intravenous contrast, 5 mm thick sections acquired from the lung apices to the symphysis. 5 mm coronal and sagittal reformats were performed, with additional 7 mm MIP reformats through the lungs. For radiation dose reduction, the following was used: automated exposure control, adjustment of mA and/or kV according to patient size. COMPARISON: [place], [place], PET NECK TO MID THIGH, 01/16/2025, 9:06. FINDINGS: Image quality: Excellent. CHEST: Lower Neck: No enlarged lymph nodes. Thyroid: No thyroid nodules which require sonographic follow up, per consensus guidelines. Axillae: No enlarged lymph nodes. Chest Wall: Unremarkable. Lungs and Pleura: No pneumothorax or pleural effusions. [id number] paraseptal and centrilobular emphysematous changes. Triangular-shaped subpleural nodules within the bilateral lower lobes. Scattered additional micro nodules measuring 3 mm or less. Heart: Heart size is normal. Moderate coronary artery calcifications. Trace pericardial effusion. Thoracic Vessels: The aorta and pulmonary arteries demonstrate normal size. Mediastinum and Alessandra: No enlarged lymph nodes. Esophagus: No wall thickening. No hiatal hernia. ABDOMEN: Liver: No solid mass. Gallbladder: No radiopaque gallstones or wall thickening. Biliary ducts: No biliary dilation. Pancreas: No ductal dilation. Spleen: Size is within normal limits. Adrenal Glands: No adrenal nodules. Kidneys and Ureters: Mild bilateral perinephric stranding peer No hydronephrosis. No solid mass. No complex renal cystic lesion which requires follow up. Stomach and Bowel: Normal colonic caliber, without significant wall thickening. Diverticulosis without evidence of acute diverticulitis. Normal appendix. Peritoneum: No abnormal intraperitoneal fluid. No free air. Ventral Wall: No significant ventral hernia. Abdominal Nodes: No retroperitoneal or mesenteric adenopathy by size criteria. Vessels: Aorta and inferior vena cava are normal in size. Atherosclerotic vascular calcifications. PELVIS: Pelvic Organs: Unremarkable. Bladder: No bladder wall thickening, accounting for underdistention. Pelvic Nodes: No enlarged lymph nodes. Miscellaneous: No inguinal hernias are seen. Bones: No aggressive osseous abnormality. Degenerative changes of the spine. IMPRESSION: 1. Mild bilateral perinephric stranding is nonspecific, correlate with urinalysis to exclude infection. 2. Otherwise, no acute findings within the chest, abdomen or pelvis. No peripancreatic inflammation. 3. Lower lobe triangular shaped pulmonary nodules are favored represent intrapulmonary lymph nodes. Scattered additional pulmonary micro nodules measuring 3 mm or less. Attention on follow-up imaging. 4. Please see above for additional findings. Dictated by: Jamey Garza M.D. on 04/03/2025 at 17:13 Approved by: Jamey Garza M.D. 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 Differential diagnosis includes but is not limited to metastasis, pyelonephritis, cholelithiasis, cholecystitis, pancreatitis, neck abscess, lymphadenopathy, postoperative seroma, tension headache, migraine headache, ICH, colitis, UTI, etc. On exam patient is in no acute distress, nontoxic appearing, SIRS screen negative. He does have abdominal tenderness most prevalent on the right-hand side and swelling of the right neck with no overlying erythema increased warmth or cellulitis. Posterior oropharynx is patent, uvula is midline. Discussed case with attending physician, we will obtain CT head, soft tissue neck and chest abdomen pelvis given patient's multiple symptoms, initial labs revealing WBC count of 18.9 concerning for infection. We will treat with 1 L of IV fluids, morphine and Zofran for pain. 04/03/25 Dr. Baker: Patient signed out to myself by HARLEY Medrano. Patient was seen and evaluated by myself. Had imaging Patsy's complaint of headache, neck pain with swelling over the area of his prior lymph node resection which was in November. Patient states it has not been rapidly worsening has been at the sizes at for about 3 weeks. His has noticed a little bit of redness over the area. He does note it is he has discomfort with it. He also notes some right sided abdominal and flank pain recently and had some nausea or vomiting this morning. Had some chills. Workup shows a white count of 18, platelets and hemoglobin are appropriate 85% neutrophils. Chemistries showed a sodium 132 creatinine is 1.7 was 1.31 in October of 2024 and was 1.14 in July 2024, patient is glucose is 92 lactate 0.6 LFTs are normal troponins less than 0.012 with a CK is 77. Procalcitonin is 0.383 with a lipase of 21. Urinalysis, positive for protein negative for nitrates and leuks. Head CT shows no acute change CT soft tissue neck shows central necrotic lymph node in the right neck measuring 3.1 cm short axis with surrounding fat stranding hematoma or abscess also in differential given history of recent lymph node resection. Oropharynx, nasopharynx, pharynx demonstrate no mucosal lesions. Vocal cords false cords and piriform sinus epiglottis vallecula and tongue base all appear normal, extraluminal suspicious appear unremarkable. Rest of the patient's scan also is reported as unremarkable. CT chest abdomen pelvis shows mild bilateral perinephric stranding nonspecific, correlate with urinalysis to exclude infection. No acute findings within the chest, abdomen or pelvis. No peripancreatic inflammation. Oral of triangle shaped pulmonary nodules favored to represent intrapulmonary lymph nodes scattered additional pulmonary micro nodules measuring 3 mm or less attention on follow up imaging. Patient received fluids, Zofran, Tylenol and morphine for pain, Unasyn. Patient's surgeon is Dr. Benitez through [facility], he follows with oncology with Dr. Robles. Paged ENT at 191. Spoke with Dr. Alarcon, with ENT covering for Dr. Benitez at 191. Reviewed findings from today agree with the covering with antibiotics but there was definitely concern for recurrence of his malignancy. They will see patient shortly likely in the following week. <Carina Boni Baker, DO - Last Filed: 04/03/25 23:37> Lab Data Labs: Lab Results 04/03/25 04/03/25 04/03/25 Range/Units 15:35 16:38 18:19 WBC 18.9 H (4.5-11.0) X10^3/uL RBC 4.68 (4.5-5.9) X10^6/uL Hgb 14.0 (13.5-17.5) g/dL Hct 41.7 (41-53) % MCV 89.1 (80-100) fL MCH 30.0 (26-34) PG MCHC 33.7 (30-36) % RDW 14.0 (11.6-14.8) % Plt Count 259 (150-400) X10^3/uL Neut % (Auto) 85.5 H (50-75) % Lymph % (Auto) 7.4 L (25-40) % [place] % (Auto) 6.4 (3-14) % Eos % (Auto) 0.1 L (2-4) % Baso % (Auto) 0.6 (0-2) % Neut # (Auto) 82229 H (6372-2386) /uL Lymph # (Auto) 1400 (3824-9845) /uL [place] # (Auto) 1200 H (0-900) /uL Eos # (Auto) 0 (0-450) /uL Baso # (Auto) 100 (0-100) /uL Sodium 132 L (137-145) mmol/L Potassium 3.6 (3.4-5.1) mmol/L Chloride 98 (98-107) mmol/L Carbon Dioxide 30 (22-32) mmol/L BUN 20 (9-20) mg/dL Creatinine 1.70 H (0.66-1.25) mg/dL Estimated GFR 44 L (>60) mL/min BUN/Creatinine Ratio 11.8 (6-22) Glucose 92 (70-99) mg/dL Lactate 0.6 L (0.7-2.1) mmol/L Calcium 8.6 (8.4-10.2) mg/dL Total Bilirubin 1.0 (0.2-1.3) mg/dL AST 18 (17-59) IU/L ALT 13 (<50) IU/L Alkaline Phosphatase 75 (38-126) U/L Total Creatine Kinase 77 (55-170) U/L Troponin I < 0.012 (0.01-0.034) ng/mL Total Protein 6.2 L (6.3-8.2) g/dL Albumin 3.4 L (3.5-5.0) g/dL Globulin 2.8 (1.7-4.1) g/dL Albumin/Globulin Ratio 1.2 (1.0-2.8) Lipase 21 L (23-300) U/L Procalcitonin 0.383 (<0.5) ng/mL Urine RBC 0-1/hpf (0-5/HPF) Urine WBC 1-5/hpf (0-5/HPF) Ur Squamous Epith Cells 0-1 /hpf (0-5/HPF) Urine Bacteria None seen (None) Hyaline Casts 0-1/lpf (None) Granular Casts 0-1/lpf (None) Ur Culture Indicated? Cult not indicated Vol Urine Centrifuged 10ml (spun) Point of care testing: Urine Dip Bedside Urine Glucose Negative Bedside Urine Bilirubin - Negative Bedside Urine Ketone - Negative Urine Specific [place] 1.010 Bedside Urine Occult Blood + Bedside Urine pH 5.5 Bedside Urine Protein +++ 300 Bedside Urine Urobilinogen - Negative Bedside Urine Nitrite - Negative Bedside Urine Leukocytes - Negative Esterase ECG Data Attestation: I personally reviewed and interpreted this ECG as follows: Prior ECG tracings: available for review Interpretation: Sinus rhythm rate of 76 NH 182 QRS of 92 QTC 389, no acute ST elevation, some nonspecific change T-waves inverted in V4 5. Patient has a Q-wave in 2 3 AVF. Patient has prior from 09/25/2023 Q-wave is present on prior EKG. 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 Differential diagnosis includes but is not limited to metastasis, pyelonephritis, cholelithiasis, cholecystitis, pancreatitis, neck abscess, lymphadenopathy, postoperative seroma, tension headache, migraine headache, ICH, colitis, UTI, etc. On exam patient is in no acute distress, nontoxic appearing, SIRS screen negative. He does have abdominal tenderness most prevalent on the right-hand side and swelling of the right neck with no overlying erythema increased warmth or cellulitis. Posterior oropharynx is patent, uvula is midline. Discussed case with attending physician, we will obtain CT head, soft tissue neck and chest abdomen pelvis given patient's multiple symptoms, initial labs revealing WBC count of 18.9 concerning for infection. We will treat with 1 L of IV fluids, morphine and Zofran for pain. 04/03/25 Dr. Baker: Patient signed out to myself by HARLEY Medrano. Patient was seen and evaluated by myself. Had imaging Patsy's complaint of headache, neck pain with swelling over the area of his prior lymph node resection which was in November. Patient states it has not been rapidly worsening has been at the sizes at for about 3 weeks. His has noticed a little bit of redness over the area. He does note it is he has discomfort with it. He also notes some right sided abdominal and flank pain recently and had some nausea or vomiting this morning. Had some chills. Workup shows a white count of 18, platelets and hemoglobin are appropriate 85% neutrophils. Chemistries showed a sodium 132 creatinine is 1.7 was 1.31 in October of 2024 and was 1.14 in July 2024, patient is glucose is 92 lactate 0.6 LFTs are normal troponins less than 0.012 with a CK is 77. Procalcitonin is 0.383 with a lipase of 21. Urinalysis, positive for protein negative for nitrates and leuks. Head CT shows no acute change CT soft tissue neck shows central necrotic lymph node in the right neck measuring 3.1 cm short axis with surrounding fat stranding hematoma or abscess also in differential given history of recent lymph node resection. Oropharynx, nasopharynx, pharynx demonstrate no mucosal lesions. Vocal cords false cords and piriform sinus epiglottis vallecula and tongue base all appear normal, extraluminal suspicious appear unremarkable. Rest of the patient's scan also is reported as unremarkable. CT chest abdomen pelvis shows mild bilateral perinephric stranding nonspecific, correlate with urinalysis to exclude infection. No acute findings within the chest, abdomen or pelvis. No peripancreatic inflammation. Oral of triangle shaped pulmonary nodules favored to represent intrapulmonary lymph nodes scattered additional pulmonary micro nodules measuring 3 mm or less attention on follow up imaging. Patient received fluids, Zofran, Tylenol and morphine for pain, Unasyn. Reviewed findings with the patient, patient needs to follow up in the short term with the ENT. Could also has a pyelonephritis so we will cover with antibiotics. Patient's surgeon is Dr. Benitez through [facility], he follows with oncology with Dr. Robles. Paged ENT at 1910. Spoke with Dr. Alarcon, with ENT covering for Dr. Benitez at 1917. Reviewed findings from today agree with the covering with antibiotics but there was definitely concern for recurrence of his malignancy. They will see patient shortly likely in the following week. Discharge Plan Departure Patient Disposition: Home Clinical Impression: Pyelonephritis, Creatinine elevation, Necrotizing inflammation of lymph node Activity Restrictions/Additional Instructions: You have a possibly necrotic lymph node versus infection or hematoma on the right side of your neck that has 3.1 cm. There is some perinephric stranding of the kidneys on your imaging. In the lower lobe of the lungs there is some triangular shaped pulmonary nodules favored to represent intrapulmonary lymph nodes with scattered pulmonary micro nodules measuring 3 mm or less share this information with your oncology team. I did talk with the ENT tonight who would like to see you in the next week for re-evaluation. Take antibiotics until completed. Prescription sent to [facility] in [place]. Please return for fevers, if you are having new or worsening abdominal back or flank pain, any increasing swelling of your neck, any changes to your airway or changes to your voice, vomiting, lightheadedness or passing out or other new or concerning changes. Prescriptions: New cefixime 400 mg capsule 400 mg PO DAILY 14 Days Qty: 14 0RF No Action cholecalciferol (vitamin D3) 5,000 unit capsule 5,000 unit PO DAILY multivitamin,[id number] [Complete Multivitamin] tablet 1 tab PO DAILY (DME) CPAP Supplies Qty: 1 12RF Dose Instruction: As directed Rx Instructions: Please dispense needed CPAP supplies albuterol sulfate 90 mcg/actuation HFA aerosol inhaler See Rx Instructions .ROUTE .COMPLEX Qty: 8.5 3RF Dose Instruction: Inhale 2 puffs by mouth every 4 to 6 hours as needed for shortness of breath or wheezing. Rx Instructions: Inhale 2 puffs by mouth every 4 to 6 hours as needed for shortness of breath or wheezing. allopurinol 100 mg tablet 100 mg PO DAILY Qty: 90 3RF naproxen 500 mg tablet 500 mg PO BID Qty: 180 3RF Rx Instructions: w/meals lisinopril 20 mg tablet 20 mg PO DAILY Qty: 90 3RF modafinil 200 mg tablet 200 mg PO DAILY Qty: 90 1RF ipratropium-albuterol 0.5 mg-3 mg(2.5 mg base)/3 mL solution for nebulization 3 ml inhalation Q4-6H PRN (Reason: shortness of breath or wheezing) Qty: 12 3RF fluticasone propion-salmeterol [Advair Diskus] 250-50 mcg/dose blister with device 1 inh inhalation BID Qty: 180 3RF (DME) nebulizer and all attachments See Rx Instructions .Route .MEDSUPPLY Qty: 1 0RF Rx Instructions: As directed hydrochlorothiazide 25 mg tablet 25 mg PO DAILY Qty: 90 3RF Referrals: Wilder Benitez MD [Physician, Ear, Nose, Throat] Tess Mari, TRAVEL PHYSICAL THERAPIST-BC [Primary Care Provider, Family Practice] Chon Robles MD [Non-Staff, Hematology & Oncology] Stand Alone Forms: Patient Portal/API
[2025-04-03] MEDS: ONDANSETRON 4 MG/2 ML INJ IV (16:33)
[2025-04-03] MEDS: SODIUM CHLORIDE 0.9% 1,000 ML 1000 ML IV (16:34)
[2025-04-03] MEDS: MORPHINE 4 MG/ML INJ IV (16:34)
[2025-04-03 16:55] LABS: Creatine Kinase 77 U/L (55-170)
[2025-04-03 16:56] LABS: Lactate (Lactic Acid) 0.6 mmol/L (0.7-2.1)
[2025-04-03 16:57] LABS: Procalcitonin 0.383 ng/mL (<0.5)
[2025-04-03 17:08] LABS: Troponin I < 0.012 ng/mL (0.01-0.034)
[2025-04-03] MEDS: AMPICILLIN/SULBACTAM 3 GM 3 GM in SODIUM CHLORIDE 0.9% 100 ML IV (18:14)
--- NOTE | 2025-04-03 18:18 | PC.NURSE ---
Patient goes to use bathroom. IV antibiotics paused.
[2025-04-03] MEDS: ACETAMINOPHEN IV 1,000 MG/100 ML VIAL 400 MG IV (18:58)
[2025-04-03 19:22] LABS: Culture Indicated Urine Cult Not Indicated
== END 2025-04-03 19:41 | disposition home or self-care (01) ==
PROVIDERS: Physician Assistant; Emergency Provider Emergency Medicine; PCP Nurse Practitioner Family
DX: N12 Tubulo-interstitial nephritis, not specified as acute or chronic (principal); L04.9 Acute lymphadenitis, unspecified; R79.89 Other specified abnormal findings of blood chemistry; H53.8 Other visual disturbances; R51.9 Headache, unspecified; R11.2 Nausea with vomiting, unspecified; K59.00 Constipation, unspecified; R42 Dizziness and giddiness; R50.9 Fever, unspecified
CPT/HCPCS: 36415; 70450; 70491; 71260; 74177; 80053; 81003; 81015; 82550; 83605; 83690; 84145; 84484; 85025; 87040; 93005; 96361; 96365; 96367; 96375; 99284; J0131; J0295; J2270; J2405